=== PATIENT | female | born 1945 | race Caucasian/White ===

== ENCOUNTER 2024-03-16 10:16 | Inpatient (IN) | payer OTHER, SELFPAY ==
[2024-03-16 08:45] VITALS: BP 185/93
[2024-03-16 08:47] VITALS: BP 185/93
[2024-03-16] MEDS: TORADOL 30 MG IV (09:00)
--- NOTE | 2024-03-16 09:17 | ED.GENMED ---
History of Present Illness
General
Chief Complaint: Musculo-Skeletal Complaint
Source: patient
Time Seen by Provider: 03/16/24 08:45
History of Present Illness
History of Present Illness:
78-year-old female with past medical history of hypertension, hyperlipidemia, lupus, chronic neuropathy presenting to the emergency department via ambulance after she was out jogging on a trail when she excellently tripped and fell forward onto her
left hand and hip, unable to straighten her left leg and with severe left proximal thigh and hip pain. Patient has no other concerns. Denies any head injury, LOC, vomiting, use of anticoagulants.
Past History
Past History
ED Past Medical History: HTN and Other
ED Past Surgical History: Orthopedic and Tonsilectomy
Social History
Tobacco: Non-smoker
Alcohol: None
Drug: None
Personal:
Living: with family
Review of Systems
Review of Systems
All Other Systems: ROS reviewed and negative except as documented in HPI and ROS
Phy Exam
Physical Exam
Physical Exam:
GENERAL: Alert , appears very uncomfortable
HEAD: NCAT
EYE: clear conjunctiva
NECK: Supple
ENT: o/p clr, mmm.
ABDOMEN: Soft, without focal tenderness, no r/g, no cvat
NEUROLOGICAL: Alert and oriented
SKIN: Warm and dry, abrasion over left middle finger MCP
MUSCULOSKELETAL: Left Lower Extremity: held at 60 degrees flexion of the knee. Unable to fully extend. Significant pain with palpation of the proximal third of the femur extending in to the pelvis. No outward signs of trauma or breaks in skin. Able
to ROM left ankle/foot. Easily palpable pedal/tibial pulses. Sensation grossly intact and at patients baseline.
PSYCH: Normal and appropriate interaction.
Scores
Heart Failure Risk
Heart Failure Risk Score: Not Applicable
Heart Score for Chest Pain Patients
STEMI patient?: Not applicable
Withdrawal Assessment of Alcohol
Withdrawal Assessment Completed?: Not applicable
Course
Orders/Labs/Results
Orders:
Orders
03/16/24 08:56
Ketorolac [Toradol] 30 mg IV NOW STA
CR Femur - Left Min 2 Vw Urgent
Comment:
Reason For Exam: fall, pain
CR Hip - LT w/wo Pel 2-3 Vw* Urgent
Comment:
Reason For Exam: pain, fall
Include a pelvis x-ray?: Yes
03/16/24 09:03
Basic Metabolic Panel Urgent
Complete Blood Count/With Diff Urgent
PTT Urgent
Prothrombin Time Urgent
03/16/24 09:59
Admit/Transfer Patient As Directed
Co-Sign Provider:
Level of Care: Inpatient admission
Assign to:: Medical/Surgical
Physician / Group: Dr Pappas
Diagnosis: Hip fracture
Reason for Hospitalization: pte p/w fall and had hip fx
Expected length of stay greater than two midnights?: Yes
ELOS- Estimated Length of Stay in days: 2
I certify the patient meets the requirements for IP care: Yes
PRN Pain Medication Management As Directed
May give lesser potent ordered pain med per pt: Yes
preference::
Protocol:: Medication orders for pain may be administered in a
manner that supports deferring to patient preference
when the pt is:
- Requesting an ordered lesser potent pain medication.
Least to most potent pain medications are defined
as: acetaminophen < NSAID < tramadol < opioids
(morphine, oxycodone, hydromorphone).
- Requesting a lesser dose of the same medication IF
ORDERED.
- Requesting a less intrusive route of administration
if both routes are prescribed by the provider (PO <
IV).
03/16/24 10:00
Code Status As Directed
Resuscitation Status: Full Code
03/16/24 10:05
ORTHOPEDIC CONSULT Routine
Consulting Provider: Cem Garduno
Was physician already notified: Yes
Reason for consult: hip fracture
03/16/24 10:06
HydrALAZINE [Apresoline] 10 mg IV Q6HPRN PRN
03/16/24 10:12
EKG [Electrocardiogram (*1)] Stat
Reason for Study: PreOp
Abnormal Lab Results
03/16/24
09:03
WBC 3.8 L 10^3/uL
(4.8-10.8)
RBC 3.82 L 10^6/uL
(4.20-5.40)
Hct 36.5 L %
(37.0-47.0)
MCH 32.2 H pg
(27.0-31.0)
Absolute Lymphs (auto) 0.9 L 10^3/uL
(1.2-3.4)
Monocytes % 11.2 H %
(1.7-9.3)
Carbon Dioxide 31 H mmol/L
(22-30)
BUN 27 H mg/dl
(7-17)
03/16/24 09:03
03/16/24 09:03
Vital Signs
Initial and Last Documented VS:
Initial Vital Signs
Temp Pulse Resp BP Pulse Ox
98.1 F 73 12 185/93 100
03/16/24 08:45 03/16/24 08:45 03/16/24 08:45 03/16/24 08:45 03/16/24 08:45
Last Documented Vital Signs
Temp Pulse Resp BP Pulse Ox
98.1 F 73 12 185/93 100
03/16/24 08:45 03/16/24 08:45 03/16/24 08:45 03/16/24 08:45 03/16/24 08:45
MDM/Problems Addressed
Differential Diagnosis Includes:
left hip/femur fracture, hip dislocation, contusion
MDM/Problems Addressed:
78-year-old female presenting to the emergency department for evaluation after sustaining injury to her left hip while running. Patient is unable to fully extend her left knee secondary to the pain in the hip/pelvis. X-ray of the hip and femur
ordered. Patient initially declined any pain medication but was amenable to some Toradol. She did not receive any medication for pain en route. Labs ordered anticipating fracture and likely need for surgery
*Radiology
Radiology exam reviewed: preliminary read by ED provider
*Pulse Oximetry
Patient hypoxic: no
*Critical Care Note
Total Time (30-74mins, 75-104mins- exclusive of procedures): Not Applicable
Data Reviewed
Review of Other/Old Records Reveals: Labs
Source: patient
Patient Management
Discussion with other providers: Hospitalist and Air Marshal
Escalation/DeEscalation of care consider admission/obs:
On x-ray patient has a left intertrochanteric hip fracture. I notified orthopedic surgery who will plan to take patient to the OR tomorrow. N.p.o. after midnight. Hospitalist team is aware and accepts for continued evaluation and treatment.
ED Attending Note
-
Portions of this chart may have been created with voice recognition software.� Occasional wrong word or��sound alike� substitutions may have occurred due to the inherent limitations of voice recognition software.
Discharge Plan
Departure
Patient Disposition: Admit
Date of Disposition: 03/16/24
Time of Disposition: 09:56
Presentation/result/management discussed w/ accepting MD/DO: Hospitalist
Discharge Problem:
Intertrochanteric fracture of left hip
Interventions
Interventions:
*Risk Screen - Suicide Last Done: 03/16/24 08:45
*General Assessment Last Done: 03/16/24 08:45
*Neglect/Abuse Screening Last Done: 03/16/24 08:45
ED-Musculoskeletal Assessment Last Done: 03/16/24 09:16
[2024-03-16 09:23] LABS: % Basophils 1.6 % (0-2); % Eosinophils 2.9 % (0-6); % Immature Granulocytes 0.5 % (0-0.5); % Lymphocytes 22.7 % (20.5-51.1); % Monocytes 11.2 % (1.7-9.3); % Neutrophils 61.1 % (42.2-75.2); Absolute Basophils 0.1 10^3/uL (0-0.2); Absolute Eosinophils 0.1 10^3/uL (0-0.7); Absolute Lymphocytes 0.9 10^3/uL (1.2-3.4); Absolute Monocytes 0.4 10^3/uL (0.1-0.6); Absolute Neutrophils 2.4 10^3/uL (1.4-6.5); Hematocrit 36.5 % (37.0-47.0); Hemoglobin 12.3 g/dL (12.0-16.0); Mean Corp Hgb Conc. 33.7 g/dL (33.0-37.0); Mean Corpuscular Hgb 32.2 pg (27.0-31.0); Mean Corpuscular Volume 95.5 fL (81.0-99.0); Mean Platelet Volume 8.9 fL (7.4-10.4); Nucleated Red Blood Cells % 0 %; Platelet Count 194 10^3/uL (130-400); Red Blood Cell Count 3.82 10^6/uL (4.20-5.40); Red Cell Dist. Width 13.2 % (11.5-14.5); White Blood Cell Count 3.8 10^3/uL (4.8-10.8)
[2024-03-16 09:28] LABS: Blood Urea Nitrogen 27 mg/dl (7-17); Calcium 9.5 mg/dl (8.4-10.2); Carbon Dioxide 31 mmol/L (22-30); Chloride 104 mmol/L (98-107); Estimated Creatinine Clearance 44 ml/min; Glucose 78 mg/dl (70-99); Potassium 4.6 mmol/L (3.5-5.1); Sodium 135 mmol/L (135-145); eGFR > 60.00
[2024-03-16 09:29] LABS: INR 0.98; PT 12.8 Sec (11.4-14.6)
[2024-03-16 09:30] LABS: APTT 28.8 Sec (23.4-35.0)
--- NOTE | 2024-03-16 10:06 | HPS.HSE ---
Addendum entered and electronically signed by Joni Pappas MD 03/16/24 15:20:
Reviewed twelve-lead EKG and unremarkable. Can proceed to surgery as mentioned.
Original Note:
Family Physician
-
Family Physician: Matthew Mustafa
Chief Complaint
-
fall
History of Present Illness
Patient is 78 years old female history of lupus, hypertension, hyperlipidemia, neuropathy presented to the hospital after a fall. Patient was jogging this morning on a trail and when she finished she basically lost her balance and fell forward onto
her left side. No loss of consciousness. No dizziness or lightheadedness or chest pain or shortness of breath or palpitations. No fevers or chills recently or been ill. Patient is very active overall and denies any chest pain on exertion or
shortness of breath on exertion. In the ER, hemoglobin 12.3, platelet count 194, creatinine 0.8, electrolytes within normal limits. She had an x-ray that shows acute intertrochanteric fracture of the left proximal femur with mild varus angulation
of the distal femoral shaft and mild osteoarthritis with chondrocalcinosis in both hips. She was referred to hospitalist for further evaluation.
Medical History
Past Medical History
Past Medical History: Reports Other (Hypertension, hyperlipidemia, Raynaud's phenomenon, systemic lupus, peripheral neuropathy, osteoarthritis.)
Past Surgical History: Reports None
Social History
Tobacco: Non-smoker
Alcohol: None
Drug: None
Family History
Family History: Not pertinent
Allergies / Home Medications
Allergies reflects when Allergies were last updated in [facility].
Home Medications with original date entered in [facility]
Allergy/Medication List:
Allergies
Allergy/AdvReac Type Severity Reaction Status Date / Time
Penicillins Allergy mouth sores Verified 03/16/24 08:45
Home Medications
aspirin 81 mg tablet,delayed release 81 mg PO Daily 04/26/18
labetalol 100 mg tablet 100 mg PO BID 04/26/18
pregabalin 50 mg capsule 50 mg PO TID 04/26/18
amitriptyline 10 mg tablet 60 mg PO HS 06/19/18
docosahexaenoic acid (dha)-epa 120 mg-180 mg capsule 1 cap PO DAILY 06/19/18
ascorbic acid (vitamin C) 500 mg tablet (Vitamin C) 500 mg PO DAILY 03/16/24
cholecalciferol (vitamin D3) 25 mcg (1,000 unit) tablet (Vitamin D3) 25 mcg PO BID 03/16/24
therapeutic multivitamin 1 tab PO DAILY 03/16/24
vitamin B complex 1 tab PO DAILY 03/16/24
Review of Systems
-
A 12 point ROS was completed and negative except as noted: Yes
Physical Exam
Vital Signs
Vital Signs
Temp Pulse Resp BP Pulse Ox
98.1 F 73 12 185/93 100
03/16/24 08:45 03/16/24 08:45 03/16/24 08:45 03/16/24 08:45 03/16/24 08:45
Physical exam:
General: Acutely ill and apparent Distress due to pain in hip
HEENT: Normocephalic, Atraumatic and Moist Mucous Membranes
Respiratory: Clear to Auscultation; Negative Wheezes, Rales or Rhonchi
Cardiac: Regular Rhythm and S1/S2
GI: Soft, Nontender and Nondistended
Musculoskeletal: Left lower extremity externally rotated and shortened as well as tenderness. No Clubbing, No Cyanosis and No Edema
Neuro: Awake, Alert and Oriented, no gross neuro-deficits
Psych: Anxious
Physical Exam
General: Other
Laboratory Results
-
03/16/24 09:03
03/16/24 09:03
Laboratory Results
PT 12.8 Sec (11.4-14.6) 03/16/24 09:03
INR 0.98 03/16/24 09:03
APTT 28.8 Sec (23.4-35.0) 03/16/24 09:03
Impression/Plan
-
IMPRESSION:
Pte 78 F p/w fall and sustained hip fracture. Given her hip fracture she will need to be admitted to the hospital and manage accordingly.
PLAN:
Left hip fracture:
Orthopedic consult
SCDs for DVT prophylaxis for now
Pain control
N.p.o. after midnight per Ortho recommendations
Preop:
She has good MET score and no contraindications for surgery so she can proceed.
Will obtain twelve-lead EKG preop though.
Hypertension:
Resume home antihypertensive
Add IV hydralazine as needed
Peripheral neuropathy:
Continue amitriptyline and pregabalin
Lupus:
No evidence of flare
DVT prophylaxis:
SCDs
CODE STATUS:
Full code
Time spent 75 minutes
[2024-03-16 12:07] VITALS: BP 135/95
[2024-03-16] MEDS: MORPHINE SULFATE 2 MG IV (12:35)
[2024-03-16] MEDS: TYLENOL 650 MG PO ×3 (12:42→20:05)
[2024-03-16 12:45] VITALS: BP 129/81
--- NOTE | 2024-03-16 12:49 | PTCARENOTE ---
Patient admitted from ER into room 410-02. Patient in severe 10/10 pain. Given 2 mg MSO4 IV. Vital signs stable. Oriented to room, use of call velasco and television and bed controls. Patient verbalizes understanding of teaching. Denies questions at
this time.
[2024-03-16] MEDS: ROXICODONE 5 MG PO (13:03)
--- NOTE | 2024-03-16 13:36 | PTCARENOTE ---
Patient remains with severe pain after MSO4. Roxycodone given as ordered. Patient remains in pain - 9/10 on pain scale. Hospitalist notified. Pain medication changed to dilaudid rather than MSO4. Will continue to monitor.
--- NOTE | 2024-03-16 13:59 | CM ---
Pt admitted s/p fall with hip fx while jogging in a park; anticipate surgical intervention, possible 03/17/2024. Pt is in too much pain to discuss plan for discharge, so rehab facilities have not yet been discussed.
CM spoke with pt's ; he is very supportive.
Latosha and her live in a 2 story home with 1 entry step; no DME in the home, no SNF or VN history.
Plan: CM to follow to assist with probable short term placement for rehab post-op.
PCP: Matthew Mustafa
Pharmacy: [facility] in [place]
[2024-03-16] MEDS: DILAUDID 1 MG IV ×2 (15:52→21:50)
[2024-03-16] MEDS: LYRICA 50 MG PO ×2 (15:52→21:41)
[2024-03-16 15:54] VITALS: BP 116/87
--- NOTE | 2024-03-16 18:38 | CON.ORTHO ---
Consultation - Orthopedics
History
HPI: 78-year-old female presented to the emergency department with complaints of left hip pain and inability to bear weight. She was subsequently diagnosed with a left intertrochanteric femur fracture admitted to the hospitalist service and
orthopedics was consulted for further evaluation and treatment. She reports that she was walking this morning when she lost her balance and fell onto her left side. She localizes pain to the groin and lateral hip. Pain is made worse with any
motion to the left hip. She does report a history of lupus. She notes chronic neuropathy as well as some balance issues. She is community ambulator and does not use assistive devices.
Allergies / Home Medications
Past medical history: Hypertension, hyperlipidemia, lupus, neuropathy
Past surgical history: None reported
Social history: Lives at home with , non-smoker
Family history: Not pertinent
Allergy/AdvReac Type Severity Reaction Status Date / Time
Penicillins Allergy mouth sores Verified 03/16/24 08:45
�Medication �Instructions �Recorded
aspirin 81 mg tablet,delayed 81 mg PO Daily 04/26/18
release
labetalol 100 mg tablet 100 mg PO BID 04/26/18
pregabalin 50 mg capsule 50 mg PO TID 04/26/18
amitriptyline 10 mg tablet 60 mg PO HS 06/19/18
docosahexaenoic acid (dha)-epa 120 1 cap PO DAILY 06/19/18
mg-180 mg capsule
ascorbic acid (vitamin C) 500 mg 500 mg PO DAILY 03/16/24
tablet (Vitamin C)
cholecalciferol (vitamin D3) 25 25 mcg PO BID 03/16/24
mcg (1,000 unit) tablet (Vitamin
D3)
therapeutic multivitamin 1 tab PO DAILY 03/16/24
vitamin B complex 1 tab PO DAILY 03/16/24
Vital Signs / Lab Results
Temp Pulse Resp BP Pulse Ox
97.5 F 69 18 116/87 100
03/16/24 15:54 03/16/24 15:54 03/16/24 15:54 03/16/24 15:54 03/16/24 15:54
03/16/24 09:03
03/16/24 09:03
10 point review systems reviewed and negative unless otherwise stated
General: In some apparent distress at rest, conversant
Musculoskeletal left lower Extremity
Skin intact, no erythematous skin changes
Extremity shortened externally rotated
Tenderness palpation of groin and lateral trochanteric flare
No tenderness palpation over ipsilateral knee without ipsilateral palpable knee effusion
Baseline motor and sensory function distally
No other areas of bony tenderness palpation crepitation long bones or joints of tissue examination
Diagnostic studies
X-rays left hip and femur independently viewed by myself or there is evidence of a displaced left intertrochanteric femur fracture
Assessment / Plan
78-year-old community ambulator status post fall with left intertrochanteric femur fracture. Had a long detailed discussion the patient regarding diagnosis and treatment options. Discussed surgical nonsurgical options. After discussion my
recommendation was to proceed with surgical invention the form of supplemental nail fixation. We discussed risks benefits and alternatives of surgery. We discussed the usual expected perioperative and postoperative course. After discussion verbal
consent was obtained. Will plan to obtain written informed consent prior to surgery.
Nonweightbearing left lower extremity
N.p.o. at midnight
Pain control
Medical management per primary team
Please hold DVT prophylaxis in preparation for OR tomorrow
Plan: 2 OR tomorrow for insertion left cephalomedullary nail fixation left intertrochanteric femur fracture pending or availability and medical clearance.
[2024-03-16] MEDS: ZOFRAN 4 MG IV (18:50)
[2024-03-16] MEDS: TRANDATE 100 MG PO (20:05)
[2024-03-16] MEDS: ELAVIL PO ×2 (21:48)
[2024-03-16 23:25] VITALS: BP 93/59
[2024-03-17] VITALS (8 sets, daily range): BP systolic 98–121; BP diastolic 51–68
[2024-03-17] MEDS: TYLENOL PO ×4 (00:23→17:07)
[2024-03-17] MEDS: DILAUDID 1 MG IV ×4 (02:24→12:42)
[2024-03-17 08:30] LABS: Hematocrit 33.5 % (37.0-47.0); Hemoglobin 11.4 g/dL (12.0-16.0); Mean Corpuscular Hgb 32.7 pg (27.0-31.0); Platelet Count 187 10^3/uL (130-400); Red Blood Cell Count 3.49 10^6/uL (4.20-5.40); Red Cell Dist. Width 13.2 % (11.5-14.5); White Blood Cell Count 7.8 10^3/uL (4.8-10.8)
[2024-03-17] MEDS: TYLENOL 650 MG PO ×2 (08:50→22:37)
[2024-03-17] MEDS: TRANDATE 100 MG PO ×2 (08:51→22:38)
[2024-03-17] MEDS: LYRICA 50 MG PO (08:51)
[2024-03-17 08:59] LABS: Blood Urea Nitrogen 34 mg/dl (7-17); Calcium 8.9 mg/dl (8.4-10.2); Carbon Dioxide 26 mmol/L (22-30); Chloride 102 mmol/L (98-107); Estimated Creatinine Clearance 44 ml/min; Glucose 100 mg/dl (70-99); Potassium 4.8 mmol/L (3.5-5.1); Sodium 135 mmol/L (135-145); eGFR > 60.00
[2024-03-17] MEDS: ZOFRAN 4 MG IV ×2 (09:34→15:52)
[2024-03-17] MEDS: NSS 1000 IV ×2 (10:30→20:53)
--- NOTE | 2024-03-17 10:34 | PTCARENOTE ---
Patient scheduled for hip repair this afternoon. Medicated for pain as needed. NPO since midnight except for morning medications as per order. IVF started - NSS at 85 mls/hour as per order. at bedside. Answered all questions.
--- NOTE | 2024-03-17 10:46 | W.PN.HOSP.TC ---
Addendum entered and electronically signed by Joni Pappas MD 03/17/24 14:59:
Discussed with daughter over the phone today, who happens to be a physician, pathologist and lives in [place].
Original Note:
Today's Communication/Plan
-
Plan for surgery of the hip today.
Assessment / Plan
Assessment / Plan
Physical exam:
General: Acutely ill and apparent Distress due to pain in hip
HEENT: Normocephalic, Atraumatic and Moist Mucous Membranes
Respiratory: Clear to Auscultation; Negative Wheezes, Rales or Rhonchi
Cardiac: Regular Rhythm and S1/S2
GI: Soft, Nontender and Nondistended
Musculoskeletal: Left lower extremity externally rotated and shortened as well as tenderness. No Clubbing, No Cyanosis and No Edema
Neuro: Awake, Alert and Oriented, no gross neuro-deficits
Psych: Anxious
A/P:
Left hip fracture:
Orthopedic consult appreciated
Plan for hip repair today
SCDs for DVT prophylaxis for now. Deferred pharmacological DVT prophylaxis postop to Ortho.
Pain control
N.p.o. for surgery today
Preop:
She has good MET score and no contraindications for surgery so she can proceed.
Twelve-lead EKG preop unremarkable.
Hypertension:
Resumed home antihypertensive
Added IV hydralazine as needed
Peripheral neuropathy:
Continue amitriptyline and pregabalin
Lupus:
No evidence of flare
DVT prophylaxis:
SCDs
CODE STATUS:
Full code
Anticipated Discharge: > 48 hours
Subjective/Interval History
-
Date of Service: March 17, 2024
Patient complains of pain in hip area. No chest pain or shortness of breath
Objective Data
-
Labs:
Laboratory Results
03/17/24
07:40
WBC 7.8
Hgb 11.4 L
Hct 33.5 L
Plt Count 187
Sodium 135
Potassium 4.8
Chloride 102
Carbon Dioxide 26
BUN 34 H
Creatinine 0.8
Glucose 100 H
Calcium 8.9
Vital Signs:
Vital Signs
Temp Pulse Resp BP Pulse Ox
97.8 F 78 18 108/65 93
03/17/24 07:35 03/17/24 08:51 03/17/24 07:35 03/17/24 08:51 03/16/24 23:25
I&O
03/16/24 03/17/24 03/18/24
06:59 06:59 06:59
Intake Total 180 / 180
Output Total 950 / 950
Balance -770 / -770
--- NOTE | 2024-03-17 15:22 | CM ---
Latosha was seen by Orthopedics and plan for surgical intervention tomorrow.
CM will continue to follow to coordinate post-op recovery services.
[2024-03-17] MEDS: LYRICA PO ×2 (17:07→22:32)
--- NOTE | 2024-03-17 20:46 | OR.RPT ---
Operative Report
Operative Report
Anesthesia Type:
Spinal
Operative Indications:
Left intertrochanteric femur fracture
Operative Findings :
Same
Complications:
None
Implants:
11 mm x 130 degree gamma nail, 35 mm x 5 mm distal interlocking screw, 95 mm cephalomedullary lag screw
Procedure and Technique:
Insertion left cephalomedullary nail
INDICATIONS FOR PROCEDURE:
78-year-old active female history of lupus presented to the emergency department status post fall with complaints of left hip pain and inability to bear weight. She was subsequently admitted to the hospitalist service. Orthopedics was consulted.
We discussed both surgical and nonsurgical options. After discussion with my recommendation to proceed with surgical intervention. We discussed risks benefits and alternatives. We discussed the usual expected perioperative postoperative course.
After discussion written informed consent was obtained for insertion of left cephalomedullary nail
OPERATIVE PROCEDURE:
Patient was seen identified in the preoperative holding area. Operative extremity was marked. She was taken to the operating room where spinal anesthesia was administered. She was placed supine on a fracture table. Operative extremities placed
in a well-padded fracture boot. Contralateral extremity was well-padded and secured to the contralateral fracture post. Provisional reduction was performed utilizing axial traction, slight internal rotation and adduction. Appropriate reduction
was confirmed on orthogonal intraoperative fluoroscopy. Operative extremity was then prepped and draped in normal sterile fashion. Timeout was performed. Identified the correct operative extremity and preoperative antibiotics were addressed.
Proximally 5 cm incision was made just proximal to the tip of the greater trochanter. Sharp dissection through the subcutaneous tissue deep fascial layer. Guidewire was placed the tip of the greater trochanter according to technique guide.
Opening reamer was utilized. We did have to utilize flexible reamers given her thick cortices. 11 mm x 130 degree nail was then inserted appropriate depth. Additional incision was made and trocar was placed. Guidewire was then placed into the
femoral head and neck confirmed to be in appropriate position to minimize tip apex distance. Cannulated drill was then utilized and measured. 95 mm cephalomedullary lag screw was then placed appropriate position. Setscrew was deployed. Digital
incision was made and additional trocar was placed through guide. Sharp dissection was carried through skin subcutaneous tissues deep fascial layer. A 35 mm x 5 mm distal interlocking screw was placed. Aiming jig was removed and final orthogonal
images confirmed appropriate position of implant. Wounds were then copiously irrigated normal saline solution. Wounds were closed in a layered fashion utilizing 0 Vicryl, 2-0 Vicryl and vanessa. Aquacel dressings were applied. Anesthesia was
reversed and patient was taken to PACU in stable condition. Postoperative plans include weightbearing to the patient's tolerance operative extremity. Will recommend renally dosed Lovenox x 28 days for DVT prophylaxis. Plan to see patient back in
2 to 3 weeks for repeat evaluation
Disposition:
PACU stable condition
[2024-03-17] MEDS: ELAVIL PO ×2 (22:32)
[2024-03-17] MEDS: NSS IV (23:49)
[2024-03-18] VITALS (7 sets, daily range): BP systolic 94–122; BP diastolic 51–71; PULSE 67–86; O2SAT 96
--- NOTE | 2024-03-18 00:02 | PTCARENOTE ---
Pt arrived in bed from PACU at aprox 2145. at bedside. Pt with no pain at that time to left hip surgical site. Pt with 2 dressings to left hip. No drainage. Vitals stable. Pt instructed to ring for assistance.
[2024-03-18] MEDS: ANCEF 5 IV ×2 (01:13→09:54)
[2024-03-18] MEDS: TYLENOL 650 MG PO ×4 (01:20→21:01)
[2024-03-18] MEDS: DILAUDID 1 MG IV ×2 (03:12→08:09)
[2024-03-18] MEDS: TYLENOL PO ×2 (05:44→12:00)
[2024-03-18] MEDS: NSS 1000 IV ×2 (05:44→15:50)
[2024-03-18 07:26] LABS: Hematocrit 22.3 % (37.0-47.0); Hemoglobin 7.8 g/dL (12.0-16.0); Mean Corpuscular Hgb 32.5 pg (27.0-31.0); Mean Corpuscular Volume 92.9 fL (81.0-99.0); Mean Platelet Volume 9.2 fL (7.4-10.4); Platelet Count 151 10^3/uL (130-400); White Blood Cell Count 6.4 10^3/uL (4.8-10.8)
[2024-03-18] MEDS: LOVENOX 40 MG SC (08:08)
[2024-03-18] MEDS: LYRICA 50 MG PO ×3 (08:09→21:01)
[2024-03-18] MEDS: TRANDATE 100 MG PO ×2 (08:09→21:01)
[2024-03-18] MEDS: COLACE 100 MG PO ×2 (08:09→21:00)
[2024-03-18 08:14] LABS: Blood Urea Nitrogen 30 mg/dl (7-17); Calcium 8.1 mg/dl (8.4-10.2); Carbon Dioxide 25 mmol/L (22-30); Chloride 108 mmol/L (98-107); Estimated Creatinine Clearance 44 ml/min; Glucose 99 mg/dl (70-99); Potassium 4.4 mmol/L (3.5-5.1); Sodium 134 mmol/L (135-145); eGFR > 60.00
--- NOTE | 2024-03-18 08:36 | W.PN.HOSP.TC ---
Addendum entered and electronically signed by Joni Pappas MD 03/18/24 13:51:
Acute traumatic left hip fracture.
Acute postop anemia.
Original Note:
Today's Communication/Plan
-
Repeat hemoglobin. PT OT eval.
Assessment / Plan
Assessment / Plan
Physical exam:
General: Apparent Distress due to pain in hip
HEENT: Normocephalic, Atraumatic and Moist Mucous Membranes
Respiratory: Clear to Auscultation; Negative Wheezes, Rales or Rhonchi
Cardiac: Regular Rhythm and S1/S2
GI: Soft, Nontender and Nondistended
Musculoskeletal: Left lower extremity postop site tender but no erythema and no hematoma. No Clubbing, No Cyanosis and No Edema
Neuro: Awake, Alert and Oriented, no gross neuro-deficits
Psych: Anxious
A/P:
Left hip fracture:
Orthopedic consult appreciated
Status post left cephalomedullary nail on 03/17
Ortho started her on Lovenox
On IV fluids per Ortho
Pain control
PT OT eval
Acute postop anemia:
Hemoglobin 11.4---> 7.8 today
Repeat hemoglobin this morning
Discussed about possible blood transfusion with patient and at bedside and discussed about risks benefits. No consent yet but willing to consider if required.
Continue to monitor hemoglobin closely
Hyponatremia:
Mild at 134 today
Continue to monitor as needed
Preop:
She has good MET score and no contraindications for surgery so she can proceed.
Twelve-lead EKG preop unremarkable.
Hypertension:
Resumed home antihypertensive
Added IV hydralazine as needed
Peripheral neuropathy:
Continue amitriptyline and pregabalin
Lupus:
No evidence of flare
DVT prophylaxis:
SCDs and Lovenox
CODE STATUS:
Full code
Anticipated Discharge: 24 - 48 hours
Subjective/Interval History
-
Date of Service: March 18, 2024
Patient complains of pain hip area. No bleeding from surgical site. No chest pain or shortness of breath. Mild sedation reported by RN after narcotics but alert enough to me.
Objective Data
-
Labs:
Laboratory Results
03/18/24
06:48
WBC 6.4
Hgb 7.8 L D
Hct 22.3 L
Plt Count 151
Sodium 134 L
Potassium 4.4
Chloride 108 H
Carbon Dioxide 25
BUN 30 H
Creatinine 0.8
Glucose 99
Calcium 8.1 L
Vital Signs:
Vital Signs
Temp Pulse Resp BP Pulse Ox
98.2 F 86 14 122/67 94
03/18/24 07:35 03/18/24 08:09 03/18/24 07:35 03/18/24 08:09 03/18/24 07:35
I&O
03/17/24 03/18/24 03/19/24
06:59 06:59 06:59
Intake Total 180 / 180 1390 / 1390
Output Total 950 / 950 550 / 550
Balance -770 / -770 840 / 840
--- NOTE | 2024-03-18 10:24 | CM ---
Reviewed the chart notes. PT/OT evaluations pending. CM continues to be available to patient/family and is monitoring medical plan for needs at discharge.
Plan: Discharge plans will depend on PT/OT evaluations. Possible need for SNF/rehab prior to transitioning back to home.
[2024-03-18] MEDS: ZOFRAN 4 MG IV (10:41)
[2024-03-18 12:21] LABS: Hematocrit 23.2 % (37.0-47.0)
--- NOTE | 2024-03-18 12:42 | PN.CDI ---
CDI
- -
CDI:
Physician Documentation Request
Admit Date: 03/16/24 10:16
Dear Doctor Mian,
Please review the following and provide your response in the progress notes.
Clinical Indicators:
- 03/18 PN 'Acute postop anemia...Discussed about possible blood transfusion'
- 03/17 Op Report indicates insertion of left cephalomedullary nail
- 03/17-03/18 3L IVF
Laboratory Tests
03/16/24 03/17/24 03/18/24
09:03 07:40 06:48
Hgb 12.3 11.4 L 7.8 L D
03/18/24
11:52
Hgb 8.0 L
Please clarify the appropriate type of anemia that supports the above lab abnormalities and additional evaluation, monitoring and/or treatment rendered:
Anemia, due to acute blood loss and hemodilution
Anemia due to hemodilution only
Other
Use of terms such as suspected, likely, concern for, or probable (associated with a specific diagnosis that is being evaluated, monitored, or treated as if it exists) are acceptable and can be coded in the inpatient setting, when documented at the
time of discharge.
Thank you,
Christine Patrick RN
CDI Specialist
Please use your independent medical judgment in providing your response.
--- NOTE | 2024-03-18 12:46 | PN.CDI ---
CDI
- -
CDI:
Physician Documentation Request
Admit Date: 03/16/24 10:16
Dear Doctor Pappas,
Please review the following and provide your response in the progress notes.
Clinical Indicators:
- 03/18 PN 'Left hip fracture'
- per ER Physician patient was jogging on a trail and tripped
- per 10/26/21 Bone Density Survey 'left proximal femur...decrease in the bone mineral density which is statistically significant...osteopenia'
Please provide further specificity regarding the diagnosis of the left hip fracture:
Traumatic
Pathologic due to osteoporosis
Due to a combination of trauma and a pathological process but the trauma alone would not likely have been sufficient to cause the fracture
Other
Use of terms such as suspected, likely, concern for, or probable (associated with a specific diagnosis that is being evaluated, monitored, or treated as if it exists) are acceptable and can be coded in the inpatient setting, when documented at the
time of discharge.
Thank you,
Christine Patrick RN
CDI Specialist
Please use your independent medical judgment in providing your response.
--- NOTE | 2024-03-18 12:57 | W.PN.ORTHO ---
Today's Communication / Plan
-
POD 1 s/p L short CMN for IT femur fx
WBAT LLE
Pain control
DVT ppx: renally dosed lovenox X 28 days daily
PT/OT
Pain control
Medical management per primary team
Follow up outpatient in 2-3 weeks outpatient with myself
Subjective
.
.:
Patient resting comfortably in bed. Continues to complain of pain in left thigh/leg.
Vital Signs and Labs
.
Vital Signs and Labs:
Lab Results
03/18/24 11:52
03/18/24 06:48
Temp Pulse Resp BP Pulse Ox
98.2 F 82 16 106/67 96
03/18/24 11:25 03/18/24 11:25 03/18/24 11:25 03/18/24 11:25 03/18/24 11:25
PT 12.8 Sec (11.4-14.6) 03/16/24 09:03
INR 0.98 03/16/24 09:03
Physical Exam
-
MSK LLE
Dressings with minimal bloody drainage
Moderate swelling thigh
no gross or motor sensory deficits distally
[2024-03-18] MEDS: ELAVIL 10 MG PO ×2 (21:01→21:03)
[2024-03-18] MEDS: ELAVIL 50 MG PO (21:04)
[2024-03-19] MEDS: TYLENOL PO (00:19)
[2024-03-19] MEDS: NSS 1000 IV (02:27)
[2024-03-19] MEDS: TYLENOL 650 MG PO ×6 (03:52→23:20)
--- NOTE | 2024-03-19 07:26 | W.PN.HOSP.TC ---
Addendum entered and electronically signed by Joni Pappas MD 03/19/24 12:58:
Underweight
Original Note:
Today's Communication/Plan
-
Pain control. PT OT. Monitor hemoglobin
Assessment / Plan
Assessment / Plan
Physical exam:
General: Apparent Distress due to pain in hip
HEENT: Normocephalic, Atraumatic and Moist Mucous Membranes
Respiratory: Clear to Auscultation; Negative Wheezes, Rales or Rhonchi
Cardiac: Regular Rhythm and S1/S2
GI: Soft, Nontender and Nondistended
Musculoskeletal: Left lower extremity postop site tender but no erythema and no hematoma. No Clubbing, No Cyanosis and No Edema
Neuro: Awake, Alert and Oriented, no gross neuro-deficits
Psych: Anxious
A/P:
Left hip fracture:
Orthopedic consult appreciated
Status post left cephalomedullary nail on 03/17
Ortho recommended continue on Lovenox
Off IV fluids
Pain control
Bowel regimen
PT OT eval
Discussed with at bedside
Offered psychiatry consult for further evaluation adjustment disorder but patient and kindly declined.
Acute blood loss postop anemia:
Hemoglobin 11.4---> 7.8-->8-->7.4
Continue to monitor hemoglobin closely
Hyponatremia:
Mild at 134-->136
Preop:
She has good MET score and no contraindications for surgery so she can proceed.
Twelve-lead EKG preop unremarkable.
Hypertension:
Resumed home antihypertensive
Added IV hydralazine as needed
Peripheral neuropathy:
Continue amitriptyline and pregabalin
Lupus:
No evidence of flare
DVT prophylaxis:
SCDs and Lovenox
CODE STATUS:
Full code
Anticipated Discharge: 24 - 48 hours
Subjective/Interval History
-
Date of Service: March 19, 2024
Patient still complains of pain. Mild depressed mood. No bleeding
Objective Data
-
Labs:
Laboratory Results
03/19/24
06:00
WBC Pending
Hgb Pending
Hct Pending
Plt Count Pending
Sodium Pending
Potassium Pending
Chloride Pending
Carbon Dioxide Pending
BUN Pending
Creatinine Pending
Glucose Pending
Calcium Pending
Vital Signs:
Vital Signs
Temp Pulse Resp BP Pulse Ox
98.4 F 77 16 94/51 96
03/18/24 23:11 03/18/24 23:11 03/18/24 23:11 03/18/24 23:11 03/18/24 23:11
I&O
03/18/24 03/19/24 03/20/24
06:59 06:59 06:59
Intake Total 1390 / 1390 2880 / 2880
Output Total 550 / 550
Balance 840 / 840 2880 / 2880
--- NOTE | 2024-03-19 07:51 | PN.CDI ---
CDI
- -
CDI:
Physician Documentation Request
Admit Date: 03/16/24 10:16
Dear Doctor Mian,
Please review the following and provide your response in the progress notes.
Clinical Indicators:
Height: 5'3
Weight: 104lbs
BMI: 18.6
- Patient admit for fractured hip due to fall
If possible, please provide an associated diagnosis related to the abnormal BMI, such as:
Underweight
Cachectic
BMI is not significant
Other
Use of terms such as suspected, likely, concern for, or probable (associated with a specific diagnosis that is being evaluated, monitored, or treated as if it exists) are acceptable and can be coded in the inpatient setting, when documented at the
time of discharge.
Thank you,
Christine Patrick RN
CDI Specialist
Please use your independent medical judgment in providing your response.
[2024-03-19 08:31] LABS: Hematocrit 21.1 % (37.0-47.0); Hemoglobin 7.4 g/dL (12.0-16.0); Mean Corp Hgb Conc. 35.1 g/dL (33.0-37.0); Mean Corpuscular Volume 94.2 fL (81.0-99.0); Red Blood Cell Count 2.24 10^6/uL (4.20-5.40); White Blood Cell Count 5.9 10^3/uL (4.8-10.8)
[2024-03-19 08:32] VITALS: BP 110/65
[2024-03-19 08:35] LABS: Blood Urea Nitrogen 16 mg/dl (7-17); Calcium 8.1 mg/dl (8.4-10.2); Carbon Dioxide 24 mmol/L (22-30); Chloride 109 mmol/L (98-107); Estimated Creatinine Clearance 58 ml/min; Glucose 93 mg/dl (70-99); Potassium 3.6 mmol/L (3.5-5.1); Sodium 136 mmol/L (135-145); eGFR > 60.00
--- NOTE | 2024-03-19 08:44 | CM ---
Addendum entered by Molly Smyth RN 03/19/24 15:19:
Auth started in [employer]ail[employer]; Pended # [id number]
Addendum entered by Molly Smyth RN 03/19/24 11:49:
[facility] offered a bed. Patient selected [facility]. Per [facility] director of market analysis at [facility], patient does have Out of Network [employer] Benefits Co-Pays as follows for days 1-20 $0/Day and for days 21-100 $100/Day. Patient and spouse in agreement
with costs. Precert will be required.
DR. Philip ; [facility] or Tax ID [id number].
Original Note:
Reviewed the chart notes. Referrals sent in [facility] for short term rehab. Precert will be required. CM continues to be available to patient/family and is monitoring medical plan for needs at discharge.
Plan: Discharge to SNF/rehab once bed found and precert obtained.
[2024-03-19] MEDS: LYRICA 50 MG PO ×3 (09:02→21:28)
[2024-03-19] MEDS: COLACE 100 MG PO ×2 (09:02→20:31)
[2024-03-19] MEDS: LOVENOX 40 MG SC (09:02)
[2024-03-19] MEDS: TRANDATE 100 MG PO ×2 (09:02→20:32)
[2024-03-19 12:15] VITALS: BP 110/65; PULSE 84
[2024-03-19 12:39] VITALS: BP 110/65; BP 87/40; PULSE 79
[2024-03-19 15:31] VITALS: BP 104/50
[2024-03-19] MEDS: ELAVIL 50 MG PO (21:27)
[2024-03-19 23:40] VITALS: BP 111/58
[2024-03-20] VITALS (8 sets, daily range): BP systolic 95–152; BP diastolic 53–78
[2024-03-20] MEDS: TYLENOL 650 MG PO ×6 (04:51→23:05)
[2024-03-20 07:34] LABS: Hematocrit 17.9 % (37.0-47.0); Hemoglobin 6.2 g/dL (12.0-16.0)
--- NOTE | 2024-03-20 08:17 | W.PN.HOSP.TC ---
Today's Communication/Plan
-
Blood transfusion today.
Assessment / Plan
Assessment / Plan
Physical exam:
General: Apparent Distress due to pain in hip
HEENT: Normocephalic, Atraumatic and Moist Mucous Membranes
Respiratory: Clear to Auscultation; Negative Wheezes, Rales or Rhonchi
Cardiac: Regular Rhythm and S1/S2
GI: Soft, Nontender and Nondistended
Musculoskeletal: Left lower extremity postop site tender but no erythema and no hematoma. No Clubbing, No Cyanosis and No Edema
Neuro: Awake, Alert and Oriented, no gross neuro-deficits
Psych: Anxious
A/P:
Left hip fracture, traumatic and acute:
Orthopedic consult appreciated
Status post left cephalomedullary nail on 03/17
Ortho recommended continue on Lovenox
Off IV fluids-no need for since she is getting blood transfusion
Pain control
Bowel regimen
PT OT eval
Offered psychiatry consult for further evaluation adjustment disorder but patient and kindly declined prior.
Discussed with at bedside as well as daughter who is a physician (pathologist).
Acute blood loss postop anemia:
Hemoglobin 11.4---> 6.2
Blood transfusion today, 2 unit
Continue to monitor hemoglobin closely
Hyponatremia:
Mild at 134-->136
Preop:
She has good MET score and no contraindications for surgery so she can proceed.
Twelve-lead EKG preop unremarkable.
Hypertension:
Resumed home antihypertensive
Added IV hydralazine as needed
Peripheral neuropathy:
Continue amitriptyline and pregabalin
Lupus:
No evidence of flare
DVT prophylaxis:
SCDs and Lovenox
CODE STATUS:
Full code
Anticipated Discharge: 24 - 48 hours
Subjective/Interval History
-
Date of Service: March 20, 2024
Patient with pain postop, no melena or hematemesis. No active bleeding. No chest pain or shortness of breath
Objective Data
-
Labs:
Laboratory Results
03/20/24
06:31
Hgb 6.2 L*
Hct 17.9 L*
Vital Signs:
Vital Signs
Temp Pulse Resp BP Pulse Ox
98.2 F 76 12 124/69 99
03/20/24 07:00 03/20/24 07:00 03/20/24 07:00 03/20/24 07:00 03/20/24 07:00
I&O
03/19/24 03/20/24 03/21/24
06:59 06:59 06:59
Intake Total 2880 / 2880 1860 / 1860
Balance 2880 / 2880 1860 / 1860
[2024-03-20] MEDS: LYRICA 50 MG PO ×3 (08:19→21:12)
[2024-03-20] MEDS: TRANDATE 100 MG PO ×2 (08:20→20:20)
[2024-03-20] MEDS: LOVENOX SC ×2 (08:20→09:04)
[2024-03-20] MEDS: COLACE 100 MG PO ×2 (08:20→20:20)
--- NOTE | 2024-03-20 09:12 | CM ---
Addendum entered by Virginia Pringle 03/20/24 16:34:
Met with patient and family at the bedside to discuss discharge plan; explained that insurance authorization was approved and bed is available if discharged tomorrow
To facilitate transport coordination, Transport suppression crew leader Form and Physician Certification Statement completed and given to unit control worker to place on the chart
IMM benefit explained; form signed @ 1620
Plan: Discharge to [facility] tomorrow, 03/21/24,
[facility]; 4th Floor
Report # [phone]

Addendum entered by Virginia Pringle 03/20/24 12:32:
If patient is stable for Discharge tomorrow, Madiha @ [facility] instructed to First call Library Serials Assistant # [phone] and ask for the Nursing Admiral[employer] Lawyer
[facility]; 4th Floor
Report # [phone]

Addendum entered by Virginia Pringle 03/20/24 12:22:
Plan: Discharge to [facility] tomorrow if medically stable
Auth approved; notified Madiha @ [facility]; Bed available
AUTH Certification # [id number]
Start Date 03-20-24
End Date 04-01-24
Original Note:
Plan: Discharge to [facility] when stable pending bed availability; AUTH approved
Per Attending, patient will probably be discharged tomorrow. Contacted [facility] for bed availability
AUTH Certification # [id number]
Start Date 03-20-24
End Date 04-01-24
[2024-03-20] MEDS: FLEXERIL 5 MG PO (20:27)
[2024-03-20] MEDS: ELAVIL 10 MG PO (21:12)
[2024-03-20] MEDS: ELAVIL 50 MG PO (21:12)
[2024-03-21] MEDS: TYLENOL PO (04:48)
[2024-03-21 07:40] VITALS: BP 165/88
[2024-03-21 08:36] LABS: % Basophils 0.8 % (0-2); % Immature Granulocytes 0.8 % (0-0.5); % Lymphocytes 11.1 % (20.5-51.1); % Monocytes 8.1 % (1.7-9.3); % Neutrophils 74.2 % (42.2-75.2); Absolute Eosinophils 0.3 10^3/uL (0-0.7); Absolute Lymphocytes 0.6 10^3/uL (1.2-3.4); Absolute Monocytes 0.4 10^3/uL (0.1-0.6); Absolute Neutrophils 3.9 10^3/uL (1.4-6.5); Hematocrit 27.5 % (37.0-47.0); Hemoglobin 9.9 g/dL (12.0-16.0); Mean Corp Hgb Conc. 36.2 g/dL (33.0-37.0); Mean Corpuscular Hgb 31.8 pg (27.0-31.0); Mean Corpuscular Volume 87.7 fL (81.0-99.0); Mean Platelet Volume 9.6 fL (7.4-10.4); Nucleated Red Blood Cells % 0 %; Platelet Count 130 10^3/uL (130-400); Red Blood Cell Count 3.18 10^6/uL (4.20-5.40); Red Cell Dist. Width 15.5 % (11.5-14.5); White Blood Cell Count 5.2 10^3/uL (4.8-10.8)
[2024-03-21] MEDS: TYLENOL 650 MG PO ×2 (09:18→14:17)
[2024-03-21] MEDS: TRANDATE 100 MG PO (09:19)
[2024-03-21] MEDS: LYRICA 50 MG PO ×2 (09:19→15:56)
[2024-03-21] MEDS: COLACE 100 MG PO (09:20)
[2024-03-21] MEDS: LOVENOX 40 MG SC (09:20)
--- NOTE | 2024-03-21 09:48 | W.PN.HOSP.TC ---
Today's Communication/Plan
-
Discharge planning today.
Assessment / Plan
Assessment / Plan
Physical exam:
General: Apparent Distress due to pain in hip
HEENT: Normocephalic, Atraumatic and Moist Mucous Membranes
Respiratory: Clear to Auscultation; Negative Wheezes, Rales or Rhonchi
Cardiac: Regular Rhythm and S1/S2
GI: Soft, Nontender and Nondistended
Musculoskeletal: Left lower extremity postop site tender but no erythema and no hematoma. No Clubbing, No Cyanosis and No Edema
Neuro: Awake, Alert and Oriented, no gross neuro-deficits
Psych: Anxious
A/P:
Left hip fracture, traumatic and acute:
Orthopedic consult appreciated
Status post left cephalomedullary nail on 03/17
Ortho recommended continue on Lovenox for 28 days so we will continue with 24 more days to complete course.
Off IV fluids-no need for since she is getting blood transfusion
Pain control
Bowel regimen
PT OT eval
Offered psychiatry consult for further evaluation adjustment disorder but patient and kindly declined prior.
Discussed with at bedside as well as daughter who is a physician (pathologist) yesterday.
Discussed with at bedside again today.
Discussed with attending RN today.
Medically stable for discharge.
business unit manager for discharge disposition
Acute blood loss postop anemia:
Hemoglobin 11.4---> 6.2-->9.9
LFTs normal and no signs of hemolysis
Blood transfusion yesterday, 2 unit
Continue to monitor hemoglobin as outpatient
Hyponatremia:
Mild at 134-->138
Preop:
She has good MET score and no contraindications for surgery so she can proceed.
Twelve-lead EKG preop unremarkable.
Hypertension:
Resumed home antihypertensive
Added IV hydralazine as needed
Peripheral neuropathy:
Continue amitriptyline and pregabalin
Lupus:
No evidence of flare
DVT prophylaxis:
SCDs and Lovenox
CODE STATUS:
Full code
Anticipated Discharge: Today
Subjective/Interval History
-
Date of Service: March 21, 2024
Patient denies new complaints.
Objective Data
-
Labs:
Laboratory Results
03/21/24
08:06
WBC 5.2
Hgb 9.9 L D
Hct 27.5 L
Plt Count 130
Sodium Pending
Potassium Pending
Chloride Pending
Carbon Dioxide Pending
BUN Pending
Creatinine Pending
Glucose Pending
Calcium Pending
Total Bilirubin Pending
AST Pending
ALT Pending
Alkaline Phosphatase Pending
Vital Signs:
Vital Signs
Temp Pulse Resp BP Pulse Ox
98.1 F 66 18 165/88 100
03/21/24 07:40 03/21/24 07:40 03/21/24 07:40 03/21/24 07:40 03/21/24 07:40
I&O
03/20/24 03/21/24 03/22/24
06:59 06:59 06:59
Intake Total 1859 240 / 240
Balance 1859 240 / 240
[2024-03-21 09:52] LABS: ALT (SGPT) 38 U/L (0-35); AST (SGOT) 83 U/L (14-36); Albumin 3.3 g/dl (3.5-5.0); Alkaline Phosphatase 83 U/L (38-126); Blood Urea Nitrogen 13 mg/dl (7-17); Calcium 8.7 mg/dl (8.4-10.2); Carbon Dioxide 23 mmol/L (22-30); Chloride 109 mmol/L (98-107); Estimated Creatinine Clearance 58 ml/min; Glucose 83 mg/dl (70-99); Potassium 3.8 mmol/L (3.5-5.1); Sodium 138 mmol/L (135-145); Total Bilirubin 1.3 mg/dl (0.2-1.3); Total Protein 5.7 g/dl (6.3-8.2); eGFR > 60.00
--- NOTE | 2024-03-21 12:08 | W.DCSUMMARY ---
Discharge Summary
Discharge Data
Date of Admission: 03/16/24
Date of Discharge: 03/21/24
-
Pending Results: No
Hospital Course
Patient 78 years old female history of hypertension, hyperlipidemia, lupus, peripheral neuropathy presented the after a fall and found to have a left intertrochanteric femoral fracture. Orthopedic consulted. She was taken to the OR by orthopedic
and had insertion of left cephalomedullary nail on 03/17. Patient also has some postop anemia and she received blood transfusion and hemoglobin stable posttransfusion at 9.9. Patient participating with physical therapy and Occupational Therapy and
recommended rehab. Patient is going to be discharged to rehab in relatively stable condition today.
Discharge duration: 33-minute
Discharge Plan
-
Patient Disposition: Jail/SNF
Discharge Diagnosis/Procedures: Left Hip fracture status post surgical repair. Acute blood loss post op anemia.
Diet: Low Cholesterol
Activity: Other activity
Additional Activity: As instructed by ortho
Blood Work: Please PCP to order CBC, BMP within 1 week
Referrals:
Cem Garduno MD [Active] - in one to two weeks
Matthew Mustafa MD [Family Provider] - in less than 1 week
Prescriptions:
New
enoxaparin 40 mg/0.4 mL Syringe
40 mg SC DAILY 24 Days Qty: 9.6 0RF
cyclobenzaprine 10 mg Tablet
5 mg PO Q8HPRN PRN (Reason: spasm in hip area) 7 Days Qty: 4 0RF
docusate sodium 100 mg Capsule
100 mg PO BID 14 Days Qty: 28 0RF
oxycodone 5 mg Tablet
5 mg PO Q4HPRN PRN (Reason: moderate pain) Qty: 4 0RF
Continued
aspirin 81 MG tablet,delayed release (DR/EC)
81 mg PO Daily
labetalol 100 MG tablet
100 mg PO BID
pregabalin 50 MG capsule
50 mg PO TID
amitriptyline 10 MG tablet
60 mg PO HS
Patient Comments:
docosahexaenoic acid-epa 1 CAP capsule
1 cap PO DAILY
therapeutic multivitamin Tablet
1 tab PO DAILY
ascorbic acid (vitamin C) [Vitamin C] 500 mg Tablet
500 mg PO DAILY
vitamin B complex Tablet
1 tab PO DAILY
cholecalciferol (vitamin D3) [Vitamin D3] 25 mcg (1,000 unit) Tablet
25 mcg PO BID
Discharge Orders:
Discharge Patient (As Directed); Ordered 03/21/24
Ordered By: Joni Pappas
Discharge Date and Time
Discharge Date/Time: 03/21/24 16:20
Print Language: BENGALI
--- NOTE | 2024-03-21 12:54 | CM ---
Addendum entered by Jessa Stapleton 03/21/24 14:05:
CM met with pt and spouse at bedside who are agreeable to SNF at [facility] with a 4pm roller picker.
Original Note:
CM spoke to Nursing Guitar Player Higinio at [facility], they can accept pt today after 3pm.
[2024-03-21 15:20] VITALS: BP 120/69
== END 2024-03-21 16:20 | DRG 481 ==
LOC: 2 SOUTH 10:16
PROVIDERS: Physician Assistant Medical; ADMITTING PHYSICIAN Hospitalist; CONSULT PHYSICIAN Orthopaedic Surgery; EMERGENCY PHYSICIAN Student in an Organized Health Care Education/Training Program; FAMILY PHYSICIAN Internal Medicine
PROC: 0QS736Z Reposition Left Upper Femur with Intramedullary Internal Fixation Device, Percutaneous Approach (ICD-10-PCS; 2024-03-17)
PROC: 30233N1 Transfusion of Nonautologous Red Blood Cells into Peripheral Vein, Percutaneous Approach (ICD-10-PCS; 2024-03-20)
DX: S72.142A Displaced intertrochanteric fracture of left femur, initial encounter for closed fracture (principal); D62 Acute posthemorrhagic anemia; E87.1 Hypo-osmolality and hyponatremia; Z68.1 Body mass index [BMI] 19.9 or less, adult; I10 Essential (primary) hypertension; E78.5 Hyperlipidemia, unspecified; M32.9 Systemic lupus erythematosus, unspecified; G62.9 Polyneuropathy, unspecified; M19.90 Unspecified osteoarthritis, unspecified site; R63.6 Underweight; Z88.0 Allergy status to penicillin; Z79.82 Long term (current) use of aspirin; Z79.899 Other long term (current) drug therapy; W01.0XXA Fall on same level from slipping, tripping and stumbling without subsequent striking against object, initial encounter; Y93.01 Activity, walking, marching and hiking
CPT/HCPCS: 73502; 73552; 76000; 80048; 80053; 85014; 85018; 85025; 85027; 85610; 85730; 86850; 86900; 86901; 86920; 93005; 96374; 97110; 97163; 97167; 97530; 97535; 99285; C1713; C1769; P9016

== ENCOUNTER 2024-03-25 10:12 | Inpatient (IN) | payer OTHER, SELFPAY ==
[2024-03-22 23:02] VITALS: BP 187/101; BMI 19.6
[2024-03-22 23:33] LABS: Hematocrit 31.7 % (37.0-47.0); Hemoglobin 11.4 g/dL (12.0-16.0); Mean Corpuscular Hgb 31.4 pg (27.0-31.0); Mean Corpuscular Volume 87.3 fL (81.0-99.0); Mean Platelet Volume 8.6 fL (7.4-10.4); Platelet Count 208 10^3/uL (130-400); Red Blood Cell Count 3.63 10^6/uL (4.20-5.40); Red Cell Dist. Width 15.3 % (11.5-14.5)
[2024-03-22 23:47] LABS: ALT (SGPT) 112 U/L (0-35); AST (SGOT) 220 U/L (14-36); Albumin 3.9 g/dl (3.5-5.0); Alkaline Phosphatase 107 U/L (38-126); Blood Urea Nitrogen 15 mg/dl (7-17); Calcium 9.6 mg/dl (8.4-10.2); Carbon Dioxide 28 mmol/L (22-30); Chloride 101 mmol/L (98-107); Estimated Creatinine Clearance 61 ml/min; Glucose 110 mg/dl (70-99); Potassium 4.2 mmol/L (3.5-5.1); Sodium 136 mmol/L (135-145); Total Protein 6.6 g/dl (6.3-8.2); eGFR > 60.00
[2024-03-23] VITALS (10 sets, daily range): BP systolic 101–170; BP diastolic 59–104; BMI 17.8
--- NOTE | 2024-03-23 00:46 | ED.GENMED ---
History of Present Illness
<Florinda Amin PA-C - Last Filed: 03/23/24 21:33>
General
Chief Complaint: Abdominal Symptoms
Source: patient
Time Seen by Provider: 03/23/24 00:30
History of Present Illness
History of Present Illness:
78yoF with a history of hypertension, hyperlipidemia, and lupus presenting for evaluation of nausea and abdominal pain. Patient was recently hospitalized for a left hip fracture and underwent IM nail on 03/17/2024. She was discharged to a
short-term rehab facility 2 days ago. Around midnight 2 nights ago, she developed generalized abdominal cramping as well as nausea. She also reports a headache. She has been urinating frequently since her surgery. She was given milk of magnesia
and Zofran earlier today at her nursing facility. She had an episode of dry heaving this evening and she was sent to the ED for evaluation. Patient denies any chest pain, shortness of breath, diarrhea, fevers. No previous abdominal surgeries. Of
note, patient was tested for COVID earlier today and test was negative.
Past History
<Florinda Amin PA-C - Last Filed: 03/23/24 21:33>
Past History
ED Past Medical History: HTN and Other
ED Past Surgical History: Orthopedic and Tonsilectomy
Social History
Tobacco: Non-smoker
Alcohol: None
Drug: None
Personal:
Living: with family
Phy Exam
<Florinda Amin PA-C - Last Filed: 03/23/24 21:33>
General Physical Exam
General Presentation: well appearing
General age: appears stated age
General Skin: warm and dry
General Habitus: normal
General Mental: alert
Cardiovascular Exam
Cardiovascular Exam: regular rate/rhythm and no edema
Pulmonary Exam
Pulmonary Exam: lungs clear, no respiratory distress, no crackles and no wheezing
Gastrointestinal Exam
Gastrointestinal Exam: soft, non distended and tender (Tenderness present to epigastrium. No guarding or rebound tenderness.)
[place] Coma Scale
Eye Opening: Spontaneous
Verbal Response: Oriented
Motor Response: Obeys Commands
GCS Total Score: 15
Skin Exam
Skin Exam: normal color and warm/dry
Psychiatric Exam
Psychiatric Exam: normal mood/affect
Course
<Florinda Amin PA-C - Last Filed: 03/23/24 21:33>
Orders/Labs/Results
Orders:
Orders
03/22/24 23:22
Comprehensive Metabolic Panel Urgent
Lipase Urgent
03/22/24 23:23
Complete Blood Count/No Diff Urgent
03/23/24 00:43
CT Abd/pel W Iv And Oral Contr Urgent
Comment:
Reason For Exam: Nausea, abdominal cramping
0.9% Sodium Chloride 500 ml [Nss] 500 ml IV BOLUS
Iohexol [Omnipaque] See Protocol PO NOW STA
Ondansetron Injectable [Zofran] 4 mg IV NOW STA
03/23/24 00:48
Electrocardiogram (*1) Urgent
Reason for Study: Abdominal Pain
EKG- Treatment ONCE
03/23/24 01:10
Add On- LAB Urgent
Tests Added?: Lipase
03/23/24 01:13
Troponin I Urgent
03/23/24 04:35
Code Status As Directed
Resuscitation Status: Full Code
Bisacodyl [Dulcolax] 10 mg RECTAL [id number] PRN
Docusate W/Senna [Senokot-S] 1 tablet PO BIDPRN PRN
Polyethylene Glycol Powder [Miralax] 17 grams PO DAILYPRN PRN
Activity As Directed
Activity Level: With Assistance
Vital Signs As Directed
Frequency: Per unit guidelines
03/23/24 04:38
GASTROINTESTINAL CONSULT Routine
Consulting Provider: Stu Plunkett
Was physician already notified: No
Reason for consult: new transaminitis
Ondansetron Injectable [Zofran] 4 mg IV Q6HPRN PRN
Intake/ Output As Directed
Frequency: Per unit guidelines
DX Deep Vein Thrombosis Video Routine
03/23/24 04:41
Consult Notification Routine
Specialty to Notify: Gastroenterology
Date consulting provider notified: 03/23/24
Time consulting provider notified: 07:05
Notified:: Provider
Comment: tt
03/23/24 04:42
Cyclobenzaprine HCl [Flexeril] 5 mg PO Q8HPRN PRN
Oxycodone [Roxicodone] 5 mg PO Q4HPRN PRN
03/23/24 04:45
0.9% Sodium Chloride 1000 ml [Nss] 1,000 ml IV 100 mls/hr
03/23/24 04:50
Admit Patient As Directed
Co-Sign Provider:
Level of Care: Observation services
Assign to:: Medical/Surgical
Physician / Group: dr orellana
Diagnosis: new transaminitis, abd pain,nausea
HYDROmorphone [Dilaudid] 0.5 mg IV Q3HPRN PRN
PRN Pain Medication Management As Directed
May give lesser potent ordered pain med per pt: Yes
preference::
Protocol:: Medication orders for pain may be administered in a
manner that supports deferring to patient preference
when the pt is:
- Requesting an ordered lesser potent pain medication.
Least to most potent pain medications are defined
as: acetaminophen < NSAID < tramadol < opioids
(morphine, oxycodone, hydromorphone).
- Requesting a lesser dose of the same medication IF
ORDERED.
- Requesting a less intrusive route of administration
if both routes are prescribed by the provider (PO <
IV).
03/23/24 04:56
Urinalysis Reflex To Culture Urgent
Date Specimen was Collected: 03/23/24
Time Specimen was Collected: 04:41
Urine Microscopic Reflex Cult Urgent
Urine Culture Urgent
LARRY Source: U
Specimen Description:
Date Specimen was Collected: 03/23/24
Time Specimen was Collected: 04:41
03/23/24 05:05
Bladder Scan As Directed
Follow Bladder Retention/Intermittent Cath Algorithm?: Yes
PRN if no void in __ hours: 6
Frequency: Per Retention Algorithm
If Bladder Scan Result >: 400
then:: Straight cath
Straight Cath As Directed
Frequency: Per Retention Algorithm
Additional Instructions: straight cath as needed per acute urinary retention algorithm for 24 hrs
Additional Instructions: for bladder scan greater than 400 mL
03/23/24 Breakfast
NPO
Allow oral meds: Yes
Allow clear liquids: No
NPO with Ice Chips: Yes
Flush (0.9% Sodium Chloride) [Flush (Nss)] See Dose Instructions IV PER PROTOCOL
US Abdomen Complete/Upper IN AM
Comment:
Reason For Exam: transaminitis
03/23/24 08:00
Aspirin Low Dose EC [Aspir Low (Enteric Coated)] 81 mg PO Daily
Enoxaparin Sodium [Lovenox] 30 mg SC DAILY
Labetalol [Trandate] 100 mg PO BID
Pregabalin [Lyrica] 50 mg PO TID
docosahexaenoic acid-epa 1 cap PO DAILY
03/23/24 11:00
Acetaminophen Routine
Comment: ADD ON
Complete Blood Count/No Diff IN AM
Comprehensive Metabolic Panel IN AM
Direct Bilirubin Routine
Comment: ADD ON
03/23/24 22:00
Amitriptyline [Elavil] 60 mg PO HS
Abnormal Lab Results
03/22/24 03/22/24 03/23/24
23:22 23:23 04:56
RBC 3.63 L 10^6/uL
(4.20-5.40)
Hgb 11.4 L g/dL
(12.0-16.0)
Hct 31.7 L %
(37.0-47.0)
MCH 31.4 H pg
(27.0-31.0)
RDW 15.3 H %
(11.5-14.5)
Creatinine 0.5 L mg/dL
(0.6-1.0)
Glucose 110 H mg/dl
(70-99)
Total Bilirubin 2.0 H mg/dl
(0.2-1.3)
AST 220 H U/L
(14-36)
ALT 112 H U/L
(0-35)
Ur Occult Blood Reflex 3+ A
(Negative)
Urine RBC 50-60 A /HPF
(0-2)
Urine Bacteria (Reflex) Moderate A
(Negative)
03/22/24 23:23
03/22/24 23:22
Vital Signs
Initial and Last Documented VS:
Initial Vital Signs
Temp Pulse Resp BP
98.2 F 85 24 187/101
03/22/24 23:02 03/22/24 23:02 03/22/24 23:02 03/22/24 23:02
Last Documented Vital Signs
Temp Pulse Resp BP Pulse Ox
98.5 F 83 14 116/76 98
03/23/24 15:00 03/23/24 21:01 03/23/24 15:00 03/23/24 21:01 03/23/24 07:00
<Elian Torres DO - Last Filed: 03/23/24 04:05>
Orders/Labs/Results
Orders:
Orders
03/22/24 23:22
Comprehensive Metabolic Panel Urgent
Lipase Urgent
03/22/24 23:23
Complete Blood Count/No Diff Urgent
03/23/24 00:43
CT Abd/pel W Iv And Oral Contr Urgent
Comment:
Reason For Exam: Nausea, abdominal cramping
0.9% Sodium Chloride 500 ml [Nss] 500 ml IV BOLUS
Iohexol [Omnipaque] See Protocol PO NOW STA
Ondansetron Injectable [Zofran] 4 mg IV NOW STA
03/23/24 00:48
Electrocardiogram (*1) Urgent
Reason for Study: Abdominal Pain
EKG- Treatment ONCE
03/23/24 01:10
Add On- LAB Urgent
Tests Added?: Lipase
03/23/24 01:13
Troponin I Urgent
03/23/24 04:35
Code Status As Directed
Resuscitation Status: Full Code
Bisacodyl [Dulcolax] 10 mg RECTAL [id number] PRN
Docusate W/Senna [Senokot-S] 1 tablet PO BIDPRN PRN
Polyethylene Glycol Powder [Miralax] 17 grams PO DAILYPRN PRN
Activity As Directed
Activity Level: With Assistance
Vital Signs As Directed
Frequency: Per unit guidelines
03/23/24 04:38
GASTROINTESTINAL CONSULT Routine
Consulting Provider: Stu Plunkett
Was physician already notified: No
Reason for consult: new transaminitis
Ondansetron Injectable [Zofran] 4 mg IV Q6HPRN PRN
Intake/ Output As Directed
Frequency: Per unit guidelines
DX Deep Vein Thrombosis Video Routine
03/23/24 04:41
Consult Notification Routine
Specialty to Notify: Gastroenterology
Date consulting provider notified: 03/23/24
Time consulting provider notified: 07:05
Notified:: Provider
Comment: tt
03/23/24 04:42
Cyclobenzaprine HCl [Flexeril] 5 mg PO Q8HPRN PRN
Oxycodone [Roxicodone] 5 mg PO Q4HPRN PRN
03/23/24 04:45
0.9% Sodium Chloride 1000 ml [Nss] 1,000 ml IV 100 mls/hr
03/23/24 04:50
Admit Patient As Directed
Co-Sign Provider:
Level of Care: Observation services
Assign to:: Medical/Surgical
Physician / Group: dr orellana
Diagnosis: new transaminitis, abd pain,nausea
HYDROmorphone [Dilaudid] 0.5 mg IV Q3HPRN PRN
PRN Pain Medication Management As Directed
May give lesser potent ordered pain med per pt: Yes
preference::
Protocol:: Medication orders for pain may be administered in a
manner that supports deferring to patient preference
when the pt is:
- Requesting an ordered lesser potent pain medication.
Least to most potent pain medications are defined
as: acetaminophen < NSAID < tramadol < opioids
(morphine, oxycodone, hydromorphone).
- Requesting a lesser dose of the same medication IF
ORDERED.
- Requesting a less intrusive route of administration
if both routes are prescribed by the provider (PO <
IV).
03/23/24 04:56
Urinalysis Reflex To Culture Urgent
Date Specimen was Collected: 03/23/24
Time Specimen was Collected: 04:41
Urine Microscopic Reflex Cult Urgent
Urine Culture Urgent
LARRY Source: U
Specimen Description:
Date Specimen was Collected: 03/23/24
Time Specimen was Collected: 04:41
03/23/24 05:05
Bladder Scan As Directed
Follow Bladder Retention/Intermittent Cath Algorithm?: Yes
PRN if no void in __ hours: 6
Frequency: Per Retention Algorithm
If Bladder Scan Result >: 400
then:: Straight cath
Straight Cath As Directed
Frequency: Per Retention Algorithm
Additional Instructions: straight cath as needed per acute urinary retention algorithm for 24 hrs
Additional Instructions: for bladder scan greater than 400 mL
03/23/24 Breakfast
NPO
Allow oral meds: Yes
Allow clear liquids: No
NPO with Ice Chips: Yes
Flush (0.9% Sodium Chloride) [Flush (Nss)] See Dose Instructions IV PER PROTOCOL
US Abdomen Complete/Upper IN AM
Comment:
Reason For Exam: transaminitis
03/23/24 08:00
Aspirin Low Dose EC [Aspir Low (Enteric Coated)] 81 mg PO Daily
Enoxaparin Sodium [Lovenox] 30 mg SC DAILY
Labetalol [Trandate] 100 mg PO BID
Pregabalin [Lyrica] 50 mg PO TID
docosahexaenoic acid-epa 1 cap PO DAILY
03/23/24 11:00
Acetaminophen Routine
Comment: ADD ON
Complete Blood Count/No Diff IN AM
Comprehensive Metabolic Panel IN AM
Direct Bilirubin Routine
Comment: ADD ON
03/23/24 22:00
Amitriptyline [Elavil] 60 mg PO HS
Abnormal Lab Results
03/22/24 03/22/24 03/23/24
23:22 23:23 04:56
RBC 3.63 L 10^6/uL
(4.20-5.40)
Hgb 11.4 L g/dL
(12.0-16.0)
Hct 31.7 L %
(37.0-47.0)
MCH 31.4 H pg
(27.0-31.0)
RDW 15.3 H %
(11.5-14.5)
Creatinine 0.5 L mg/dL
(0.6-1.0)
Glucose 110 H mg/dl
(70-99)
Total Bilirubin 2.0 H mg/dl
(0.2-1.3)
AST 220 H U/L
(14-36)
ALT 112 H U/L
(0-35)
Ur Occult Blood Reflex 3+ A
(Negative)
Urine RBC 50-60 A /HPF
(0-2)
Urine Bacteria (Reflex) Moderate A
(Negative)
03/22/24 23:23
03/22/24 23:22
Vital Signs
Initial and Last Documented VS:
Initial Vital Signs
Temp Pulse Resp BP
98.2 F 85 24 187/101
03/22/24 23:02 03/22/24 23:02 03/22/24 23:02 03/22/24 23:02
Last Documented Vital Signs
Temp Pulse Resp BP Pulse Ox
98.5 F 83 14 116/76 98
03/23/24 15:00 03/23/24 21:01 03/23/24 15:00 03/23/24 21:01 03/23/24 07:00
Suhaillt;Florinda Amin PA-C - Last Filed: 03/23/24 21:33>
MDM/Problems Addressed
Differential Diagnosis Includes:
78yoF here with abdominal cramping and nausea. Recently discharged 2 days ago after an admission for a L hip fracture. No CP/SOB. She is hypertensive with otherwise normal vitals. She is non-toxic appearing. No signs of peritonitis on abdominal
exam. Differential diagnosis includes but is not limited to: gastroenteritis, gastritis, pancreatitis, biliary colic, ileus, constipation, nonspecific abdominal pain
Initial ED plan: Check abdominal labs, troponin/EKG, UA, and CT abdomen. IV Zofran for symptoms.
<Florinda Amin PA-C - Last Filed: 03/23/24 21:33>
*Critical Care Note
Total Time (30-74mins, 75-104mins- exclusive of procedures): Not Applicable
<Florinda Amin PA-C - Last Filed: 03/23/24 21:33>
Update Note
Update Note:
Labs show a transaminitis with AST 220, ALT 112, and total bilirubin of 2.0. This appears worse from labs two days ago. White count and lipase are normal. Patient signed out to Dr. Torres pending CT results.
CT ABDOMEN AND PELVIS with oral and IV contrast
IMPRESSION:
No bowel obstruction or inflammation.
Unremarkable gallbladder, pancreas, and kidneys.
Left femur intramedullary cuca with dynamic hip screw bypassing a comminuted intertrochanteric fracture. There is overlying stranding and a few foci of soft tissue gas.
Fluid within the left iliopsoas bursa.
Trace bilateral pleural effusions.
Moderate atherosclerosis. No AAA.
<Elian Torres, - Last Filed: 03/23/24 04:05>
Update Note
Update Note:
CT ABDOMEN AND PELVIS with oral and IV contrast
IMPRESSION:
No bowel obstruction or inflammation.
Unremarkable gallbladder, pancreas, and kidneys.
Left femur intramedullary cuca with dynamic hip screw bypassing a comminuted intertrochanteric fracture. There is overlying stranding and a few foci of soft tissue gas.
Fluid within the left iliopsoas bursa.
Trace bilateral pleural effusions.
Moderate atherosclerosis. No AAA.
ED Attending Note
<Florinda Amin PA-C - Last Filed: 03/23/24 21:33>
-
Portions of this chart may have been created with voice recognition software.� Occasional wrong word or��sound alike� substitutions may have occurred due to the inherent limitations of voice recognition software.
Discharge Plan
Departure
Patient Disposition: Admit
Date of Disposition: 03/23/24
Time of Disposition: 04:04
Admit to: Telemetry
Presentation/result/management discussed w/ accepting MD/DO: Hospitalist
Condition: Fair
Discharge Problem:
Abdominal pain, Nausea & vomiting
Interventions
Interventions:
*Risk Screen - Suicide Last Done: 03/23/24 06:03
*General Assessment Last Done: 03/22/24 23:02
*Neglect/Abuse Screening Last Done: 03/22/24 23:02
ED- Fall Risk Assessment Last Done: 03/23/24 04:07
*ED COVID-19 Vaccine History Last Done: 03/23/24 04:12
*Nursing Disposition Last Done: 03/23/24 05:30
FF-Uedgeh-Vkfcnygbfa Assessment Last Done: 03/22/24 23:32
Discharge Date and Time
Discharge Date/Time: 03/23/24 05:30
[2024-03-23] MEDS: NSS 500 IV (01:13)
[2024-03-23] MEDS: ZOFRAN 4 MG IV (01:14)
[2024-03-23] MEDS: OMNIPAQUE 50 ML PO (01:14)
[2024-03-23 01:45] LABS: Lipase 78 U/L (23-300)
[2024-03-23 01:56] LABS: Troponin I 0.026 ng/ml
--- NOTE | 2024-03-23 04:49 | HPS.HSE ---
Family Physician
-
Family Physician: NOT KNOW UNKNOWN - PT DOES
Chief Complaint
-
abdominal pain
History of Present Illness
HPI
78F from SNF HX HTN, HLD, Lupus seen at ER for evalaution of nausea and abdominal pain.
- around [place] , sudden onset of generalized abdominal pain plus nausea
- recently hospitalized for a left hip fracture and underwent IM nail on 03/17/2024.
- discharged to a short-term rehab facility 2 days ago.
- urinating frequently since her surgery.
- Noted frequent Tylenol schedule ordrs during last admission
Patient denies any chest pain, shortness of breath, diarrhea, fevers. No previous abdominal surgeries. Of note, patient was tested for COVID earlier today and test was negative.
Medical History
Past Medical History
Past Medical History: Reports HTN and Other (Lupus )
Past Surgical History: Reports Orthopedic (IM nail on 03/17/2024. for left hip fracture)
Social History
Tobacco: Non-smoker
Alcohol: None
Personal:
Living: With Family
Family History
Family History: Not pertinent
Allergies / Home Medications
Allergies reflects when Allergies were last updated in [facility].
Home Medications with original date entered in [facility]
Allergy/Medication List:
Allergies
Allergy/AdvReac Type Severity Reaction Status Date / Time
Penicillins Allergy mouth sores Verified 03/23/24 01:15
Home Medications
aspirin 81 mg tablet,delayed release 81 mg PO Daily 04/26/18
labetalol 100 mg tablet 100 mg PO BID 04/26/18
pregabalin 50 mg capsule 50 mg PO TID 04/26/18
amitriptyline 10 mg tablet 60 mg PO HS 06/19/18
docosahexaenoic acid (dha)-epa 120 mg-180 mg capsule 1 cap PO DAILY 06/19/18
ascorbic acid (vitamin C) 500 mg tablet (Vitamin C) 500 mg PO DAILY 03/16/24
cholecalciferol (vitamin D3) 25 mcg (1,000 unit) tablet (Vitamin D3) 25 mcg PO BID 03/16/24
therapeutic multivitamin 1 tab PO DAILY 03/16/24
vitamin B complex 1 tab PO DAILY 03/16/24
cyclobenzaprine 10 mg tablet 5 mg (1/2 x 10 mg) PO Q8HPRN PRN spasm in hip area 7 days #4 tabs 03/21/24
docusate sodium 100 mg capsule 100 mg PO BID 14 days #28 caps 03/21/24
enoxaparin 40 mg/0.4 mL subcutaneous syringe 40 mg (0.4 mL) SC DAILY 24 days #9.6 mL 03/21/24
oxycodone 5 mg tablet 5 mg PO Q4HPRN PRN moderate pain #4 tabs 03/21/24
acetaminophen 325 mg tablet 650 mg PO Q4H PRN pain or fever 03/23/24
bisacodyl 10 mg rectal suppository (Dulcolax (bisacodyl)) 10 mg OK DAILY PRN prn constipation 03/23/24
magnesium hydroxide 400 mg/5 mL oral suspension (Milk of Magnesia) 400 mg PO DAILY PRN constipation 03/23/24
ondansetron 4 mg disintegrating tablet 4 mg PO Q6H PRN nausea 03/23/24
sodium phosphates 19 gram-7 gram/118 mL enema (Fleet Enema) 118 ml OK ONCE PRN if MOM ineffective; constipation 03/23/24
Review of Systems
-
Constitutional: Reports No Symptoms
EENT: Reports No Symptoms
Respiratory: Reports No Symptoms
Cardiac: Reports No Symptoms
Abdomen/GI: Reports Abdominal Pain and Nausea
: Reports No Symptoms
Musculoskeletal: Reports No Symptoms
Skin: Reports No Symptoms
Neurological: Reports No Symptoms
Endocrine: Reports No Symptoms
Hematologic/Lymphatic: Reports No Symptoms
Psych: Reports No Symptoms
Physical Exam
Vital Signs
Vital Signs
Temp Pulse Resp BP Pulse Ox
98.2 F 90 19 147/86 99
03/22/24 23:02 03/23/24 04:08 03/23/24 01:45 03/23/24 04:08 03/23/24 04:08
Physical Exam
General: No Apparent Distress and Other (thin )
Respiratory: Clear
Cardiac: S1/S2
Breast: Deferred by me
GI: Soft, Non Distended, Normal Bowel Sounds and Tender (mid abdomen )
Musculoskeletal: No Edema
Neuro: AO x 3, No Motor Deficits and Nonfocal/grossly intact
Psych: Calm
Laboratory Results
-
03/22/24 23:23
03/22/24 23:22
Laboratory Results
Total Bilirubin 2.0 mg/dl (0.2-1.3) H 03/22/24 23:22
AST 220 U/L (14-36) H 03/22/24 23:22
ALT 112 U/L (0-35) H 03/22/24 23:22
Alkaline Phosphatase 107 U/L (38-126) 03/22/24 23:22
Troponin I 0.026 ng/ml 03/23/24 01:13
Lipase 78 U/L (23-300) 03/22/24 23:22
Data Reviewed
-
CT Scan: Report Reviewed by me
Lab Data: Labs Reviewed by me
Impression/Plan
-
Reviewed VS: BP 187/100 afebrile
Data
Hgb 11.4
unremarkable BMP
TB 2.0
AST 220 -was 83 on 03/21/24
CT AP
no BWO
Unremarkable GB, pancreas and Kidneys
Last hospitalist admission: 03/16/24 - 03/21/24
PDX: Left Hip fracture status post surgical repair. Acute blood loss post op anemia.
03/17/24 insertion of left cephalomedullary nail on 03/17.
ASSESSMENT & PLAN
Interval new transaminitis suspect Drug induced Liver injury (DILI) due to q4h schedule Tylenol during last admission
Associated with Abdominal pian but NEG CT AP
Couple of hypotensive episode on las admission as low as BP 93/59
- avoid Tylenol and other hepatotoxic agents
- US complete abdomen
- Clear and IVF
- Trend LFTs
- GI consult
Abdominal cramping with new onset of dysuria at his hr
Straight cath few times on last admission for acute urinary retention
HX multiple UTIS
- HX PCN allergy tolerates 2 doses of Ancef on last admission
- Pending UA
[facility] HTN
- cont Labetalol
Lupus HX with Neuropathic pain
- on Lyrica and Nortriptyline
S/P IM nail on 03/17/2024. for left hip fracture
- PT/OT
- cont LMWH for DVT Px
DVT Px: on LMWH
Code: Full code
Obs MS
[2024-03-23 05:13] LABS: Urine Albumin Negative (Neg - Trace); Urine Bilirubin Negative (Negative); Urine Character Clear (Clear); Urine Color Yellow; Urine Glucose Negative (Negative); Urine Ketone Negative (Negative); Urine Leukocyte Negative (Negative); Urine Nitrite Negative (Negative); Urine Occult Blood 3+ (Negative); Urine Urobilinogen Negative (Neg - 1+)
[2024-03-23] MEDS: NSS 1000 IV ×2 (06:08→16:11)
[2024-03-23 06:16] LABS: Urine Bacteria Moderate (Negative); Urine Red Blood Cell 50-60 /HPF (0-2)
[2024-03-23] MEDS: COMPAZINE 10 MG IV ×2 (08:57→17:16)
[2024-03-23] MEDS: TRANDATE 100 MG PO ×2 (09:00→21:01)
[2024-03-23] MEDS: LOVENOX 30 MG SC (09:00)
[2024-03-23] MEDS: ASPIR LOW (ENTERIC COATED) 81 MG PO (09:00)
[2024-03-23] MEDS: LYRICA 50 MG PO ×3 (09:00→21:01)
--- NOTE | 2024-03-23 10:17 | CM ---
strategic partner development manager reviewed patient's chart and met with patient and patient lives with her spouse in a 2 story home, one step to enter full flight to 2nd floor, patient is independent with adl's and ambulation, no dme, patient was just discharged from
[facility] on 03/21/24 and was sent to [facility].
Patient admitted under OBS, PAZ letter explained to patient and signed.
Pharmacy: [facility]
PCP: Dr. Mustafa
Plan; Possible return to [facility] depending on physical therapy evaluation.
--- NOTE | 2024-03-23 10:21 | W.PN.HOSP.TC ---
Today's Communication/Plan
-
See plan
Assessment / Plan
Assessment / Plan
Impression:
Presentation with persistent nausea, dry heaves and abdominal cramps.
Abnormal LFTs, mixed pattern with concern for DILI.
Recent hospitalization for left hip fracture, status post left cephalomedullary nail 03/17
Acute postoperative anemia requiring transfusion.
Other conditions:
Essential hypertension
Peripheral neuropathy
Lupus
Plan:
Presentation with persistent nausea, dry heaves and abdominal pain.
Exam with benign abdomen.
Noted with elevation of LFTs mixed pattern.
CT scan of the abdomen and pelvis, abdominal ultrasound with no hepatobiliary abnormalities.
Clinically and radiologically with no evidence of intestinal obstruction or obstipation.
Concern for drug-induced liver injury since being treated with Tylenol for pain recent left hip fracture.
Hold further Tylenol.
IV hydration.
Clear liquid diet.
Follow LFT.
If persistent symptoms, consider GI evaluation.
Urinalysis not consistent with UTI.
Status post left hip fracture/left cephalomedullary nail 03/17.
Continue physical therapy
Adjust analgesic regimen.
DVT prophylaxis with Lovenox
Acute postoperative anemia with low with hemoglobin at 6.2, required 2 units of packed red blood cells transfused over the last hospitalization.
Hemoglobin 11.4 on presentation
Monitor CBC
Essential hypertension
Continue labetalol
Peripheral neuropathy
Continue amitriptyline and pregabalin
Lupus with no evidence of flareup.
Currently not on any immunosuppressive medications.
Full code.
Anticipated Discharge: 24 - 48 hours
Subjective/Interval History
-
Date of Service: March 23, 2024
Objective Data
-
Labs:
Laboratory Results
03/22/24 03/22/24 03/23/24
23:22 23:23 06:00
WBC 6.0 Pending
Hgb 11.4 L Pending
Hct 31.7 L Pending
Plt Count 208 D Pending
Sodium 136 Pending
Potassium 4.2 Pending
Chloride 101 Pending
Carbon Dioxide 28 Pending
BUN 15 Pending
Creatinine 0.5 L Pending
Glucose 110 H Pending
Calcium 9.6 Pending
Total Bilirubin 2.0 H Pending
AST 220 H Pending
ALT 112 H Pending
Alkaline Phosphatase 107 Pending
Vital Signs:
Vital Signs
Temp Pulse Resp BP Pulse Ox
98.5 F 89 14 161/95 98
03/23/24 07:00 03/23/24 07:00 03/23/24 07:00 03/23/24 07:00 03/23/24 07:00
I&O
03/22/24 03/23/24 03/24/24
06:59 06:59 06:59
Output Total 800 / 800
Balance -800 / -800
Physical Exam
-
General: Well Developed and No Apparent Distress
HEENT: Normocephalic, Atraumatic and Moist Mucous Membranes
Respiratory: Clear to Auscultation
Cardiac: Regular Rhythm and S1/S2; Negative Murmur, Rub or Gallop
GI: Soft, Nontender, Nondistended and Normal Bowel Sounds; Negative Organomegaly
Rectal: Deferred by Provider
Musculoskeletal: No Clubbing, No Cyanosis and No Edema
Skin: Negative Rash
Neuro: Awake, Alert, Oriented, AO x 3 and Nonfocal/Grossly Intact
--- NOTE | 2024-03-23 11:51 | CON.GI ---
Addendum entered and electronically signed by Stu Plunkett MD 03/23/24 19:26:
I saw and examined the patient.
The TAG MARKER's note was reviewed and I agree with the note.
-- Abdominal pain/nausea/constipation -possible secondary to opioids
-- Elevated liver test. Ultrasound abdomen no acute pathology.
-- recent femoral fracture
plan
Will start on bowel regimen
Continue to trend LFT
If LFTs persistently elevated will consider MRI/MRCP
Minimize opioid use
Antiemetics as needed
Original Note:
Consultation
-
Date/Time Consultation Requested: 03/23/24 0430
Date/Time Consultation Performed: 03/23/24 1150
Requesting Provider: MANNIE Kimbrough
Performing Provider: MANNIE Worthy, Stu Plunkett MD
Reason for Consultation: increased LFT's, abdominal pain
Medical History
Chief Complaint / HPI
Chief Complaint: abdominal pain, nausea
History of Present Illness:
Pt is a 78yo with hx HTN, hyperlipidemia, lupus, neuropathy with recent admission 03/16-03/21 with fall and left intertrochanteric femoral fracture and noted anemia now returns with abdominal pain with nausea. On admission noted with further rise in
Liver functions with bili 2, AST 220, ALT 112 and alk phos 107 with labs 03/21 bili 1.3, AST 83, ALT 38, alk phos 83. On admission CT and US completed without significant findings.
Pt states after last admission she went to [facility]. She reports hx chronic constipation and small stools with assist of dried apricots daily. She report small stools last admission and use of narcotic for pain control. She state after
discharge she has increased urination then began with crampy abdominal pain with nausea and dry heaves no vomiting. She typically has a good appetite but decreased with current symptoms. She denies dysphagia, GERD, abdominal pain, diarrhea, or
bleeding. Hx colonoscopy stable several years ago.
Past Medical History
Past Medical History: HTN, Hypercholesterolemia and Other (lupus, neuropathy)
Past Surgical History: Orthopedic (intertrochanteric femur fx with repair 03/17)
Social History
Tobacco: Non-Smoker
Alcohol: None
Drug: None
Personal:
Living: [facility] (for hip rehab with spouse prior to admission)
Family History
Family History: Other (no family hx GI issues )
Allergies / Home Medications
Allergy/AdvReac Type Severity Reaction Status Date / Time
Penicillins Allergy mouth sores Verified 03/23/24 01:15
�Medication �Instructions �Recorded
aspirin 81 mg tablet,delayed 81 mg PO Daily 04/26/18
release
labetalol 100 mg tablet 100 mg PO BID 04/26/18
pregabalin 50 mg capsule 50 mg PO TID 04/26/18
amitriptyline 10 mg tablet 60 mg PO HS 06/19/18
docosahexaenoic acid (dha)-epa 120 1 cap PO DAILY 06/19/18
mg-180 mg capsule
ascorbic acid (vitamin C) 500 mg 500 mg PO DAILY 03/16/24
tablet (Vitamin C)
cholecalciferol (vitamin D3) 25 25 mcg PO BID 03/16/24
mcg (1,000 unit) tablet (Vitamin
D3)
therapeutic multivitamin 1 tab PO DAILY 03/16/24
vitamin B complex 1 tab PO DAILY 03/16/24
cyclobenzaprine 10 mg tablet 5 mg (1/2 x 10 mg) PO Q8HPRN PRN 03/21/24
spasm in hip area 7 days #4 tabs
docusate sodium 100 mg capsule 100 mg PO BID 14 days #28 caps 03/21/24
enoxaparin 40 mg/0.4 mL 40 mg (0.4 mL) SC DAILY 24 days 03/21/24
subcutaneous syringe #9.6 mL
oxycodone 5 mg tablet 5 mg PO Q4HPRN PRN moderate pain 03/21/24
#4 tabs
acetaminophen 325 mg tablet 650 mg PO Q4H PRN pain or fever 03/23/24
bisacodyl 10 mg rectal suppository 10 mg ND DAILY PRN prn constipation 03/23/24
(Dulcolax (bisacodyl))
magnesium hydroxide 400 mg/5 mL 400 mg PO DAILY PRN constipation 03/23/24
oral suspension (Milk of Magnesia)
ondansetron 4 mg disintegrating 4 mg PO Q6H PRN nausea 03/23/24
tablet
sodium phosphates 19 gram-7 118 ml ND ONCE PRN if MOM 03/23/24
gram/118 mL enema (Fleet Enema) ineffective; constipation
Review of Systems
-
History Source: Patient and Family
Constitutional: Reports Weight Loss and Fatigue
EENT: Reports No Symptoms
Respiratory: Reports No Symptoms
Abdomen/GI: Reports Abdominal Pain, Nausea (dry heaves ) and Constipated
: Reports Frequency
Musculoskeletal: Reports Other (left pain )
Neurological: Reports Weakness
Endocrine: Reports No Symptoms
Hematologic/Lymphatic: Reports No Symptoms
Vital Signs
Temp Pulse Resp BP Pulse Ox
98.5 F 89 14 161/95 98
03/23/24 07:00 03/23/24 07:00 03/23/24 07:00 03/23/24 07:00 03/23/24 07:00
Physical Exam
Exam
General: Well Developed, Well Nourished and No Apparent Distress
Respiratory: Clear
Cardiac: Regular Rhythm
GI: Soft, Non Tender and Non Distended
Rectal: Other (pt refused )
Musculoskeletal: No Clubbing, No Cyanosis and Other (left left swelling and hematoma )
Skin: Warm and Dry
Neuro: Awake, Alert and AO x 3
Psych: Calm
Results
WBC 6.0 10^3/uL (4.8-10.8) 08/18/24 23:23
Hgb 11.4 g/dL (12.0-16.0) L 03/22/24 23:23
Hct 31.7 % (37.0-47.0) L 03/22/24 23:23
MCV 87.3 fL (81.0-99.0) 03/22/24 23:23
Plt Count 208 10^3/uL (130-400) D 03/22/24 23:23
Sodium 136 mmol/L (135-145) 03/22/24 23:22
Potassium 4.2 mmol/L (3.5-5.1) 03/22/24 23:22
Chloride 101 mmol/L (98-107) 03/22/24 23:22
Carbon Dioxide 28 mmol/L (22-30) 03/22/24 23:22
BUN 15 mg/dl (7-17) 03/22/24 23:22
Creatinine 0.5 mg/dL (0.6-1.0) L 03/22/24 23:22
Calcium 9.6 mg/dl (8.4-10.2) 03/22/24 23:22
Total Bilirubin 2.0 mg/dl (0.2-1.3) H 03/22/24 23:22
AST 220 U/L (14-36) H 03/22/24 23:22
ALT 112 U/L (0-35) H 03/22/24 23:22
Alkaline Phosphatase 107 U/L (38-126) 03/22/24 23:22
Lipase 78 U/L (23-300) 03/22/24 23:22
Diagnostic Image Results:
03/23 CT Abd/pel W Iv And Oral Contr
1. No CT abnormalities identified to explain the patient's symptoms.
2. Trace bilateral pleural effusions. Suspected bibasilar subsegmental atelectasis.
3. Noninflammatory fluid within the left iliopsoas bursa.
4. Changes of recent prior left hip surgery.
03/23 US abdomen
No acute hepatobiliary abnormalities.
GALLBLADDER: No stones, sludge, wall thickening or pericholecystic fluid. No songraphic Bolanos sign elicited.
BILE DUCTS: Extra-hepatic common bile duct measures 6.5 mm. No intrahepatic ductal dilation.
Prior GI Procedures:
EGD: none
Colonoscopy: stable years ago
Assessment / Plan
-
Pt is a 78yo with hx HTN, hyperlipidemia, lupus, neuropathy with recent admission 03/16-03/21 with fall and left intertrochanteric femoral fracture and noted anemia now returns with abdominal pain with nausea and constipation. On admission noted
with further rise in Liver functions with bili 2, AST 220, ALT 112 and alk phos 107 with labs 03/21 bili 1.3, AST 83, ALT 38, alk phos 83. On admission CT and US completed without significant findings.
-nausea/dry heaves
-chronic constipation
-increased LFT's
-increased urination
-post-op anemia
other med problems:
-lupus
-neuropathy
-hyperlipidemia
-HTN
PLAN:
Etiology of symptoms related to side effects of medication- narcotic use, constipation vs other
pt declined rectal exam to look for increased constipation but reports chronic issue will add Miralax daily and dulcolax now
with elevated LFT may be med related vs other
check Tylenol level
add D bili as bili may be elevated with noted left hematoma
if continued symptoms or further rise in LFT's consider MRI/MRCP
cont antiemetics
diet as tolerated
limit narcotics as able
trend hbg with some anemia
-
-
Thank you for consultation and allowing me to participate in the patient's care. Please call the excavation laborer GI physician during the after hours with any questions or concerns.
[2024-03-23] MEDS: MIRALAX 17 GRAMS PO (13:28)
[2024-03-23] MEDS: DULCOLAX 10 MG RECTAL (13:28)
[2024-03-23 13:44] LABS: Hematocrit 29.9 % (37.0-47.0); Hemoglobin 10.5 g/dL (12.0-16.0); Mean Corp Hgb Conc. 35.1 g/dL (33.0-37.0); Mean Corpuscular Volume 91.2 fL (81.0-99.0); Mean Platelet Volume 9.4 fL (7.4-10.4); Platelet Count 234 10^3/uL (130-400); Red Blood Cell Count 3.28 10^6/uL (4.20-5.40); Red Cell Dist. Width 15.1 % (11.5-14.5); White Blood Cell Count 6.4 10^3/uL (4.8-10.8)
[2024-03-23 14:22] LABS: ALT (SGPT) 107 U/L (0-35); AST (SGOT) 183 U/L (14-36); Acetaminophen < 10 ug/ml (10-30); Albumin 3.2 g/dl (3.5-5.0); Alkaline Phosphatase 98 U/L (38-126); Blood Urea Nitrogen 15 mg/dl (7-17); Calcium 8.7 mg/dl (8.4-10.2); Carbon Dioxide 25 mmol/L (22-30); Chloride 101 mmol/L (98-107); Direct Bilirubin 0.1 mg/dl (0.0-0.4); Estimated Creatinine Clearance 56 ml/min; Glucose 85 mg/dl (70-99); Potassium 4.4 mmol/L (3.5-5.1); Sodium 132 mmol/L (135-145); Total Bilirubin 1.6 mg/dl (0.2-1.3); Total Protein 5.6 g/dl (6.3-8.2); eGFR > 60.00
[2024-03-23] MEDS: ELAVIL 60 MG PO (21:01)
[2024-03-24] MEDS: NSS 1000 IV ×2 (02:10→12:39)
[2024-03-24 07:45] VITALS: BP 123/77
[2024-03-24 08:21] LABS: % Basophils 0.4 % (0-2); % Eosinophils 2.1 % (0-6); % Immature Granulocytes 0.8 % (0-0.5); % Lymphocytes 12.8 % (20.5-51.1); % Monocytes 12.2 % (1.7-9.3); % Neutrophils 71.7 % (42.2-75.2); Absolute Eosinophils 0.1 10^3/uL (0-0.7); Absolute Lymphocytes 0.6 10^3/uL (1.2-3.4); Absolute Monocytes 0.6 10^3/uL (0.1-0.6); Absolute Neutrophils 3.4 10^3/uL (1.4-6.5); Hemoglobin 8.8 g/dL (12.0-16.0); Mean Corp Hgb Conc. 35.2 g/dL (33.0-37.0); Mean Corpuscular Hgb 32.5 pg (27.0-31.0); Mean Corpuscular Volume 92.3 fL (81.0-99.0); Mean Platelet Volume 9.2 fL (7.4-10.4); Nucleated Red Blood Cells % 0 %; Platelet Count 194 10^3/uL (130-400); Red Blood Cell Count 2.71 10^6/uL (4.20-5.40); Red Cell Dist. Width 15.1 % (11.5-14.5); White Blood Cell Count 4.8 10^3/uL (4.8-10.8)
[2024-03-24 08:42] LABS: INR 1.12; PT 14.2 Sec (11.4-14.6)
[2024-03-24 08:54] LABS: ALT (SGPT) 146 U/L (0-35); AST (SGOT) 241 U/L (14-36); Albumin 2.6 g/dl (3.5-5.0); Alkaline Phosphatase 84 U/L (38-126); Blood Urea Nitrogen 16 mg/dl (7-17); Calcium 7.7 mg/dl (8.4-10.2); Carbon Dioxide 21 mmol/L (22-30); Chloride 109 mmol/L (98-107); Estimated Creatinine Clearance 56 ml/min; Glucose 77 mg/dl (70-99); Potassium 3.6 mmol/L (3.5-5.1); Sodium 135 mmol/L (135-145); Total Bilirubin 1.3 mg/dl (0.2-1.3); Total Protein 4.8 g/dl (6.3-8.2); eGFR > 60.00
[2024-03-24] MEDS: LYRICA PO (09:13)
[2024-03-24] MEDS: COMPAZINE 10 MG IV (09:14)
[2024-03-24] MEDS: LOVENOX 30 MG SC (10:08)
[2024-03-24] MEDS: MIRALAX 17 GRAMS PO (10:08)
[2024-03-24] MEDS: LYRICA 50 MG PO ×3 (10:09→21:38)
[2024-03-24] MEDS: TRANDATE 100 MG PO ×2 (10:09→21:39)
[2024-03-24] MEDS: ASPIR LOW (ENTERIC COATED) 81 MG PO (10:10)
[2024-03-24] MEDS: SENOKOT-S 1 TABLET PO (12:54)
[2024-03-24 14:01] VITALS: BP 156/81; PULSE 83; O2SAT 97
--- NOTE | 2024-03-24 15:19 | W.PN.GI.CBS2 ---
Addendum entered and electronically signed by Nando Garcia MD 03/24/24 15:52:
I saw and examined the patient.
The REVIEW RN or PA's note was reviewed and I agree with the note.
Comment: Feeling better today. Tolerated clears. Nausea improved
ABD soft NTND
REC:
Check rpt LFTs tomorrow. If continued rise, check MRI if OK with her metal in arm and linx
Advance diet as tolerated
Original Note:
Today's Communication / Plan
-
Etiology of symptoms related to side effects of medication- narcotic use, constipation vs other
improvement today will advance diet
cont antiemetics with less use today
limit narcotics -- pt has not been taking since admission
cont Miralax daily
with elevated LFT may be med related vs other still some increased today
Tylenol level less than 10
add D bili as bili may be elevated with noted left hematoma
if continued symptoms or further rise in LFT's consider MRI/MRCP-- pt would like to hold for now -- unsure of she can get with linq monitor and hx multiple hardware in arm
add hepatitis panel
repeat LFT's in AM-- some chronic AST elevation noted in past
CT and US with stable liver finding no duct dilation or stones
trend hbg with some anemia may be post -op with some bruising
updated spouse and daughter dereck at [facility] [phone],
Assessment / Plan
-
Pt is a 78yo with hx HTN, hyperlipidemia, lupus, neuropathy with recent admission 03/16-03/21 with fall and left intertrochanteric femoral fracture and noted anemia now returns with abdominal pain with nausea and constipation. On admission noted
with further rise in Liver functions with bili 2, AST 220, ALT 112 and alk phos 107 with labs 03/21 bili 1.3, AST 83, ALT 38, alk phos 83. On admission CT and US completed without significant findings.
-nausea/dry heaves
-chronic constipation
-increased LFT's
-increased urination
-post-op anemia
other med problems:
-lupus
-neuropathy
-hyperlipidemia
-HTN
-hx linq monitor
PLAN:
Etiology of symptoms related to side effects of medication- narcotic use, constipation vs other
improvement today will advance diet
cont antiemetics with less use today
limit narcotics -- pt has not been taking since admission
cont Miralax daily
with elevated LFT may be med related vs other still some increased today
Tylenol level less than 10
add D bili as bili may be elevated with noted left hematoma
if continued symptoms or further rise in LFT's consider MRI/MRCP-- pt would like to hold for now -- unsure of she can get with linq monitor and hx multiple hardware in arm
add hepatitis panel
repeat LFT's in AM-- some chronic AST elevation noted in past
CT and US with stable liver finding no duct dilation or stones
trend hbg with some anemia may be post -op with some bruising
updated spouse and daughter dereck at [facility] [phone],
Subjective
Subjective
Date of Service: March 24, 2024
on clear diet 03/23 brown stool feeling better from nausea standpoint, would like to try advanced diet
Objective
Data Reviewed
Laboratory Data:
Laboratory Results
03/24/24 07:07
03/24/24 07:07
Laboratory Results
PT 14.2 Sec (11.4-14.6) 03/24/24 07:07
INR 1.12 03/24/24 07:07
Total Bilirubin 1.3 mg/dl (0.2-1.3) 03/24/24 07:07
AST 241 U/L (14-36) H 03/24/24 07:07
ALT 146 U/L (0-35) H 03/24/24 07:07
Alkaline Phosphatase 84 U/L (38-126) 03/24/24 07:07
Lipase 78 U/L (23-300) 03/22/24 23:22
Vital Signs and I&O:
Vital Signs
Temp Pulse Resp BP Pulse Ox
98.0 F 85 18 123/77 98
03/24/24 07:45 03/24/24 07:45 03/24/24 07:45 03/24/24 07:45 03/24/24 07:45
I&O
03/23/24 03/24/24 03/25/24
06:59 06:59 06:59
Intake Total 480 / 480
Output Total 800 / 800
Balance -800 / -800 480 / 480
Physical Exam
Physical Exam
HEENT: Anicteric and Moist mucous membranes
Cardiology: Normal Sinus Rhythm
Pulmonary: Clear
GI: Soft, Non Distended and Non Tender
Extremities: No Edema
Neuro: Non Focal
[2024-03-24 15:54] VITALS: BP 103/54
--- NOTE | 2024-03-24 17:50 | W.PN.HOSP.TC ---
Today's Communication/Plan
-
Advance diet
Follow LFT
Single dose of Rocephin for bacteriuria.
Assessment / Plan
Assessment / Plan
Impression:
Presentation with persistent nausea, dry heaves and abdominal cramps.
Abnormal LFTs, mixed pattern with concern for DILI.
Recent hospitalization for left hip fracture, status post left cephalomedullary nail 03/17
Acute postoperative anemia requiring transfusion.
Other conditions:
Essential hypertension
Peripheral neuropathy
Lupus
Plan:
Presentation with persistent nausea, dry heaves and abdominal pain.
Exam with benign abdomen.
Noted with elevation of LFTs mixed pattern.
CT scan of the abdomen and pelvis, abdominal ultrasound with no hepatobiliary abnormalities.
Clinically and radiologically with no evidence of intestinal obstruction or obstipation.
Concern for drug-induced liver injury since being treated with Tylenol for pain recent left hip fracture.
Hold further Tylenol.
Nausea improved.
LFTs trending down including normalized bilirubin.
Follow trend.
Advance diet.
Urinalysis not consistent with UTI
Urine culture with gram-negative pending final identification.
Given recent surgery, Hernandes catheter will provide single dose of ceftriaxone on 03/27
Status post left hip fracture/left cephalomedullary nail 03/17.
Continue physical therapy
Adjust analgesic regimen.
DVT prophylaxis with Lovenox
Acute postoperative anemia with low with hemoglobin at 6.2, required 2 units of packed red blood cells transfused over the last hospitalization.
Hemoglobin 11.4 on presentation
Monitor CBC
Essential hypertension
Continue labetalol
Peripheral neuropathy
Continue amitriptyline and pregabalin
Lupus with no evidence of flareup.
Currently not on any immunosuppressive medications.
Full code.
Anticipated Discharge: 24 - 48 hours
Subjective/Interval History
-
Date of Service: March 24, 2024
Objective Data
-
Labs:
Laboratory Results
03/24/24
07:07
WBC 4.8
Hgb 8.8 L
Hct 25.0 L
Plt Count 194
PT 14.2
INR 1.12
Sodium 135
Potassium 3.6
Chloride 109 H
Carbon Dioxide 21 L
BUN 16
Creatinine 0.5 L
Glucose 77
Calcium 7.7 L
Total Bilirubin 1.3
AST 241 H
ALT 146 H
Alkaline Phosphatase 84
Vital Signs:
Vital Signs
Temp Pulse Resp BP Pulse Ox
97.7 F 85 18 103/54 96
03/24/24 15:54 03/24/24 15:54 03/24/24 15:54 03/24/24 15:54 03/24/24 15:54
I&O
03/23/24 03/24/24 03/25/24
06:59 06:59 06:59
Intake Total 480 / 480
Output Total 800 / 800
Balance -800 / -800 480 / 480
Physical Exam
-
General: Well Developed and No Apparent Distress
HEENT: Normocephalic, Atraumatic and Moist Mucous Membranes
Respiratory: Clear to Auscultation
Cardiac: Regular Rhythm and S1/S2; Negative Murmur, Rub or Gallop
GI: Soft, Nontender, Nondistended and Normal Bowel Sounds; Negative Organomegaly
Rectal: Deferred by Provider
Musculoskeletal: No Clubbing, No Cyanosis and No Edema
Skin: Negative Rash
Neuro: Awake, Alert, Oriented, AO x 3 and Nonfocal/Grossly Intact
[2024-03-24] MEDS: ROCEPHIN 1000 MG IV (19:07)
[2024-03-24] MEDS: STERILE WATER FOR INJECTION 10 ML IV (19:08)
[2024-03-24] MEDS: ELAVIL 60 MG PO (21:38)
[2024-03-24 23:27] VITALS: BP 118/53
--- NOTE | 2024-03-25 03:20 | DOWNTIME ---
There was a [employer] Downtime on 03/25/2024 from 0100 to 03/25/2024 at 0252. Downtime documentation of patient's care, including medication administrations, has been reconciled in the electronic record per guidelines. Refer to the
patient's paper chart under the miscellaneous tab to see printed paper medication records and downtime forms.
--- NOTE | 2024-03-25 07:10 | W.PN.GI.CBS2 ---
Addendum entered and electronically signed by Nando Garcia MD 03/25/24 13:51:
I saw and examined the patient.
The TEACHER DRAMA or PA's note was reviewed and I agree with the note.
Comment: c/o back pain. Going for xray
REC:
LFTs are trending down
OK to hold off on MRI. Suspicion for CBD stone low
Tolerating diet- low fat
Trend LFTs
Original Note:
Today's Communication / Plan
-
improving LFT's
nausea improved tolerating diet
cont laxatives
hold MRI with improved labs and pt declines with back pain
work up for back pain per hospitalist
hbg stable
Assessment / Plan
-
Pt is a 78yo with hx HTN, hyperlipidemia, lupus, neuropathy with recent admission 03/16-03/21 with fall and left intertrochanteric femoral fracture and noted anemia now returns with abdominal pain with nausea and constipation. On admission noted
with further rise in Liver functions with bili 2, AST 220, ALT 112 and alk phos 107 with labs 03/21 bili 1.3, AST 83, ALT 38, alk phos 83. On admission CT and US completed without significant findings.
-nausea/dry heaves
-chronic constipation
-increased LFT's
-increased urination
-post-op anemia
other med problems:
-lupus
-neuropathy
-hyperlipidemia
-HTN
-hx linq monitor
PLAN:
Etiology of symptoms related to side effects of medication- narcotic use, constipation vs other
cont low fat diet
she c/o severe back pain work up per hospitalist
LFT's trending down etiology unclear pt wishes to hold on imaging with back pain
limit narcotics -- pt has not been taking since admission
cont Miralax daily and keep bowel moving
hepatitis panel pending
CT and US with stable liver finding no duct dilation or stones
hbg stable
updated spouse today and daughter dereck 03/24 ,
Subjective
Subjective
Date of Service: March 25, 2024
low fat diet 03/23 stools-- nausea improved but c/o severe back pain
Objective
Data Reviewed
Laboratory Data:
Laboratory Results
PT 14.2 Sec (11.4-14.6) 03/24/24 07:07
INR 1.12 03/24/24 07:07
Total Bilirubin 1.3 mg/dl (0.2-1.3) 03/24/24 07:07
AST 241 U/L (14-36) H 03/24/24 07:07
ALT 146 U/L (0-35) H 03/24/24 07:07
Alkaline Phosphatase 84 U/L (38-126) 03/24/24 07:07
Lipase 78 U/L (23-300) 03/22/24 23:22
Laboratory Tests
03/25/24
08:30
Total Bilirubin 1.3
AST 168 H
ALT 151 H
Alkaline Phosphatase 99
Vital Signs and I&O:
Vital Signs
Temp Pulse Resp BP Pulse Ox
98.0 F 83 18 118/53 98
03/24/24 23:27 03/24/24 23:27 03/24/24 23:27 03/24/24 23:27 03/24/24 23:27
I&O
03/24/24 03/25/24 03/26/24
06:59 06:59 06:59
Intake Total 480 / 480 1779
Balance 480 / 480 1779
Physical Exam
Physical Exam
HEENT: Anicteric and Moist mucous membranes
Cardiology: Normal Sinus Rhythm
Pulmonary: Clear
GI: Soft, Non Distended and Non Tender
Extremities: No Edema
Neuro: Non Focal
[2024-03-25 07:26] VITALS: BP 146/66
[2024-03-25] MEDS: ASPIR LOW (ENTERIC COATED) 81 MG PO (08:31)
[2024-03-25] MEDS: MIRALAX 17 GRAMS PO (08:31)
[2024-03-25] MEDS: TRANDATE 100 MG PO ×2 (08:31→20:06)
[2024-03-25] MEDS: LYRICA 50 MG PO ×3 (08:31→22:19)
[2024-03-25] MEDS: LOVENOX 30 MG SC (08:31)
[2024-03-25 09:29] LABS: % Basophils 0.4 % (0-2); % Eosinophils 2.4 % (0-6); % Immature Granulocytes 0.8 % (0-0.5); % Lymphocytes 6.1 % (20.5-51.1); % Monocytes 13.2 % (1.7-9.3); % Neutrophils 77.1 % (42.2-75.2); Absolute Eosinophils 0.2 10^3/uL (0-0.7); Absolute Immature Granulocytes 0.1 10^3/uL (0-0.05); Absolute Lymphocytes 0.5 10^3/uL (1.2-3.4); Absolute Monocytes 1.1 10^3/uL (0.1-0.6); Absolute Neutrophils 6.2 10^3/uL (1.4-6.5); Hematocrit 28.7 % (37.0-47.0); Mean Corp Hgb Conc. 34.8 g/dL (33.0-37.0); Mean Corpuscular Hgb 32.7 pg (27.0-31.0); Mean Corpuscular Volume 93.8 fL (81.0-99.0); Mean Platelet Volume 9.1 fL (7.4-10.4); Nucleated Red Blood Cells % 0 %; Platelet Count 242 10^3/uL (130-400); Red Blood Cell Count 3.06 10^6/uL (4.20-5.40); Red Cell Dist. Width 15.2 % (11.5-14.5)
--- NOTE | 2024-03-25 09:30 | PTCARENOTE ---
Patient c/o 12/12 left lower back pain radiating down left leg. Patient refusing narcotic and Flexeril as ordered. Patient states, 'When this happened before, the doctor gave me steroids.' Physician made aware. Spouse at bedside, patient assisted
back to bed.
[2024-03-25 09:43] LABS: ALT (SGPT) 151 U/L (0-35); AST (SGOT) 168 U/L (14-36); Albumin 3.4 g/dl (3.5-5.0); Alkaline Phosphatase 99 U/L (38-126); Blood Urea Nitrogen 15 mg/dl (7-17); Calcium 8.9 mg/dl (8.4-10.2); Carbon Dioxide 28 mmol/L (22-30); Chloride 104 mmol/L (98-107); Estimated Creatinine Clearance 56 ml/min; Glucose 94 mg/dl (70-99); Potassium 3.8 mmol/L (3.5-5.1); Sodium 135 mmol/L (135-145); Total Bilirubin 1.3 mg/dl (0.2-1.3); eGFR > 60.00
--- NOTE | 2024-03-25 11:41 | CM ---
Chart reviewed and patient remains on OBS status, catalytic case operator is waiting on PT/OT updates and recommendations. Physical therapy and occupational therapy attempted to work with patient today.
Plan; Await recommendations from physical therapy and occupational therapy on patient.
[2024-03-25] MEDS: DELTASONE 20 MG PO (13:27)
--- NOTE | 2024-03-25 14:45 | W.PN.HOSP.TC ---
Today's Communication/Plan
-
Prednisone/analgesic regimen for sciatica.
Continue physical therapy.
Trend LFT
Diet has been advanced.
Assessment / Plan
Assessment / Plan
Impression:
Presentation with persistent nausea, dry heaves and abdominal cramps.
Abnormal LFTs, mixed pattern with concern for DILI.
Recent hospitalization for left hip fracture, status post left cephalomedullary nail 03/17
Acute postoperative anemia requiring transfusion.
Other conditions:
Essential hypertension
Peripheral neuropathy
Lupus
Plan:
Presentation with persistent nausea, dry heaves and abdominal pain.
Exam with benign abdomen.
Noted with elevation of LFTs mixed pattern.
CT scan of the abdomen and pelvis, abdominal ultrasound with no hepatobiliary abnormalities.
Clinically and radiologically with no evidence of intestinal obstruction or obstipation.
Concern for drug-induced liver injury since being treated with Tylenol for pain recent left hip fracture.
Hold further Tylenol.
Nausea improved.
LFTs trending down including normalized bilirubin.
Follow trend.
Advance diet.
Lower back pain developed on 03/25 and consistent with sciatica with radiation to the left lower extremity.
Lumbar x-ray with no acute abnormalities
Add oral prednisone 20 mg daily.
Continue current analgesic regimen
Physical therapy.
Urinalysis not consistent with UTI
Urine culture with gram-negative pending final identification.
Given recent surgery, Hernandes catheter will provide single dose of ceftriaxone on 03/27
Status post left hip fracture/left cephalomedullary nail 03/17.
Continue physical therapy
Adjust analgesic regimen.
DVT prophylaxis with Lovenox
Acute postoperative anemia with low with hemoglobin at 6.2, required 2 units of packed red blood cells transfused over the last hospitalization.
Hemoglobin 11.4 on presentation
Monitor CBC
Essential hypertension
Continue labetalol
Peripheral neuropathy
Continue amitriptyline and pregabalin
Lupus with no evidence of flareup.
Currently not on any immunosuppressive medications.
Full code.
Anticipated Discharge: 24 - 48 hours
Subjective/Interval History
-
Date of Service: March 25, 2024
Objective Data
-
Labs:
Laboratory Results
03/25/24
08:30
WBC 8.0
Hgb 10.0 L
Hct 28.7 L
Plt Count 242 D
Sodium 135
Potassium 3.8
Chloride 104
Carbon Dioxide 28
BUN 15
Creatinine 0.5 L
Glucose 94
Calcium 8.9
Total Bilirubin 1.3
AST 168 H
ALT 151 H
Alkaline Phosphatase 99
Vital Signs:
Vital Signs
Temp Pulse Resp BP Pulse Ox
98.1 F 91 20 146/66 100
03/25/24 07:26 03/25/24 07:26 03/25/24 07:26 03/25/24 07:26 03/25/24 07:26
I&O
03/24/24 03/25/24 03/26/24
06:59 06:59 06:59
Intake Total 480 / 480 1780 / 1780
Balance 480 / 480 1780 / 1780
Physical Exam
-
General: Well Developed and No Apparent Distress
HEENT: Normocephalic, Atraumatic and Moist Mucous Membranes
Respiratory: Clear to Auscultation
Cardiac: Regular Rhythm and S1/S2; Negative Murmur, Rub or Gallop
GI: Soft, Nontender, Nondistended and Normal Bowel Sounds; Negative Organomegaly
Rectal: Deferred by Provider
Musculoskeletal: No Clubbing, No Cyanosis and No Edema
Skin: Negative Rash
Neuro: Awake, Alert, Oriented, AO x 3 and Nonfocal/Grossly Intact
[2024-03-25 15:15] VITALS: BP 127/67
[2024-03-25] MEDS: STERILE WATER FOR INJECTION 10 ML IV (17:31)
[2024-03-25] MEDS: ROCEPHIN 1000 MG IV (17:31)
[2024-03-25] MEDS: ELAVIL 60 MG PO (22:19)
[2024-03-25 23:21] VITALS: BP 94/53
[2024-03-26] MEDS: FLEXERIL 5 MG PO (02:42)
[2024-03-26 07:13] VITALS: BP 120/75
--- NOTE | 2024-03-26 07:45 | PTCARENOTE ---
Patient c/o increased sciatica pain. Roxicodone given with relief. at bedside.
[2024-03-26] MEDS: ASPIR LOW (ENTERIC COATED) 81 MG PO (07:49)
[2024-03-26] MEDS: MIRALAX 17 GRAMS PO (07:49)
[2024-03-26] MEDS: TRANDATE 100 MG PO ×2 (07:49→20:12)
[2024-03-26] MEDS: ROXICODONE 5 MG PO ×2 (07:49→20:10)
[2024-03-26] MEDS: DELTASONE 20 MG PO (07:49)
[2024-03-26] MEDS: LYRICA 50 MG PO ×3 (07:50→21:49)
[2024-03-26] MEDS: LOVENOX 30 MG SC (07:50)
[2024-03-26] MEDS: SENOKOT-S 1 TABLET PO (08:08)
[2024-03-26 08:58] LABS: ALT (SGPT) 105 U/L (0-35); AST (SGOT) 88 U/L (14-36); Albumin 3.3 g/dl (3.5-5.0); Alkaline Phosphatase 92 U/L (38-126); Direct Bilirubin 0.2 mg/dl (0.0-0.4); Total Bilirubin 1.3 mg/dl (0.2-1.3); Total Protein 5.7 g/dl (6.3-8.2)
[2024-03-26 09:20] VITALS: BP 118/60; BP 119/62; PULSE 82; O2SAT 98
[2024-03-26 09:27] VITALS: BP 118/60
--- NOTE | 2024-03-26 09:28 | W.PN.GI.CBS2 ---
Addendum entered and electronically signed by Nando Garcia MD 03/26/24 14:07:
I saw and examined the patient.
The MAINTENANCE REPAIRER or PA's note was reviewed and I agree with the note.
Comment: No complaints
ABD soft NT
REC:
LFTs slowly improving
No abd pain
OK to hold off on MRI
F/U with GI in office. No further recs inpt
Will sign off.
Original Note:
Today's Communication / Plan
-
Trend LFT's. OP follow-up as below. Avoid hepatotoxins. Bowel regimen. No further GI recs, will sign off at this time. Please call back with questions or concerns.
Assessment / Plan
-
The pt is a pleasant 78yo female with a PMH significant for HTN, HLD, lupus, neuropathy with recent admission 03/16-03/21 with fall and left intertrochanteric femoral fracture with surgical fixation and noted anemia, who now returns with abdominal
pain, nausea, and constipation. On admission noted with further rise in LFT's with bili 2, AST 220, ALT 112 and alk phos 107 with labs 03/21 bili 1.3, AST 83, ALT 38, alk phos 83. On admission CT and US completed without significant findings.
Hepatitis serologies are pending.
Problem list:
-nausea/dry heaves, improved
-chronic constipation
-increased LFT's
-increased urination
-post-op anemia
-recent left femur fracture with surgical fixation
other med problems:
-lupus
-neuropathy
-hyperlipidemia
-HTN
-hx linq monitor
Recommendations:
-Etiology of symptoms/elevated LFTs unclear. Possibly related to side effects of medication- narcotic use v constipation v surgery v medication induced v other
-Her LFT's continue to down trend. No liver etiology seen on CT or US. Unlikely obstructed stone given improvement and normal imaging.
-Would continue to trend LFT's
-Avoid hepatotoxins
-Hepatitis serologies are pending
-Consider further w/u outpatient if LFT's are persistently elevated. We have arranged follow-up in the office on 04/16 at 12:[address] Plunkett.
-She should repeat her LFT's OP with her PCP 1 week after discharge
-Continue with bowel regimen, Miralax 1 capful daily, Colace 1 tab BID. Can use senna 1-2 tabs nightly PRN. Discussed with the pt and her to adjust bowel regimen based on stool response.
-PT/OT for back pain, work-up as per hospitalist
-Limit narcotics as able as this will worsen constipation
-No further inpatient GI recommendations. Will sign off at this time. Please call back with questions or concerns.
Subjective
Subjective
Date of Service: March 26, 2024
The pt was seen and examined at the bedside. She reports some improvement in her back pain after a dose of roxicodone. Her LFT's are improving. She had a bowel movement this morning.
Objective
Data Reviewed
Laboratory Data:
Laboratory Results
03/25/24 08:30
03/25/24 08:30
Laboratory Results
PT 14.2 Sec (11.4-14.6) 03/24/24 07:07
INR 1.12 03/24/24 07:07
Total Bilirubin 1.3 mg/dl (0.2-1.3) 03/26/24 07:34
AST 88 U/L (14-36) H 03/26/24 07:34
ALT 105 U/L (0-35) H 03/26/24 07:34
Alkaline Phosphatase 92 U/L (38-126) 03/26/24 07:34
Lipase 78 U/L (23-300) 03/22/24 23:22
Vital Signs and I&O:
Vital Signs
Temp Pulse Resp BP Pulse Ox
97.9 F 87 24 120/75 95
03/26/24 07:13 03/26/24 07:13 03/26/24 07:13 03/26/24 07:13 03/26/24 07:13
I&O
03/25/24 03/26/24 03/27/24
06:59 06:59 06:59
Intake Total 1780 / 1780 1800 / 1800
Balance 1780 / 1780 1800 / 1800
Physical Exam
Physical Exam
HEENT: Anicteric
Cardiology: S1 and S2 (RRR)
Pulmonary: Clear
GI: Soft, Distended (mildly distended) and Normal Bowel Sounds
Neuro: Non Focal
--- NOTE | 2024-03-26 11:18 | CM ---
Addendum entered by Cele Gregory 03/26/24 14:30:
Patient and spouse have been accepted at [facility], bed is available today, need Auth, all clinicals faxed to [facility] waiting on Auth.
Original Note:
physician practice manager reviewed patient's chart and met with patient and physical therapy are recommending skilled placement, options reviewed and patient and spouse have declined [facility] they are requesting referrals to Velma Zaman Lyman at [place],
[facility], [facility] and [facility].
Plan; To await determinations from above facilities.
--- NOTE | 2024-03-26 13:43 | PTCARENOTE ---
Patient's pain much improved. Patient OOB ambulating to bathroom with walker and supervision.
--- NOTE | 2024-03-26 14:55 | PN.CDI ---
CDI
- -
CDI:
Physician Documentation Request
Admit Date: 03/25/24 10:12
Dear Doctor Allyson,
Patient admitted for drug induced liver injury.
Please review the following and provide your response in the progress notes.
Clinical Indicators:
Height: 5' 3'
Weight: 100 lbs
BMI:17.8
If possible, please provide an associated diagnosis related to the abnormal BMI, such as:
Underweight
Cachectic
BMI is not significant
Other
BMI < or = to 19.9
Underweight
Weight Loss
Cachectic
Anorexia
Use of terms such as suspected, likely, concern for, or probable (associated with a specific diagnosis that is being evaluated, monitored, or treated as if it exists) are acceptable and can be coded in the inpatient setting, when documented at the
time of discharge.
Thank you,
Alena Gilbert RN, BSN
CDI Specialist
Available via [facility] text
Please use your independent medical judgment in providing your response.
--- NOTE | 2024-03-26 14:59 | W.PN.HOSP.TC ---
Today's Communication/Plan
-
Physical therapy
[facility]
Assessment / Plan
Assessment / Plan
Impression:
Presentation with persistent nausea, dry heaves and abdominal cramps.
Abnormal LFTs, mixed pattern with concern for DILI.
Recent hospitalization for left hip fracture, status post left cephalomedullary nail 03/17
Acute postoperative anemia requiring transfusion.
Other conditions:
Essential hypertension
Peripheral neuropathy
Lupus
Plan:
Presentation with persistent nausea, dry heaves and abdominal pain.
Exam with benign abdomen.
Noted with elevation of LFTs mixed pattern.
CT scan of the abdomen and pelvis, abdominal ultrasound with no hepatobiliary abnormalities.
Clinically and radiologically with no evidence of intestinal obstruction or obstipation.
Concern for drug-induced liver injury since being treated with Tylenol for pain recent left hip fracture.
Hold further Tylenol.
Nausea improved.
LFTs trending down including normalized bilirubin.
Follow trend.
Advance diet.
Lower back pain developed on 03/25 and consistent with sciatica with radiation to the left lower extremity.
Lumbar x-ray with no acute abnormalities
Initiated on prednisone 20 mg 03/26. Improving
Continue current analgesic regimen
Physical therapy.
Urinalysis not consistent with UTI
Urine culture with gram-negative pending final identification. Final cultures E. coli and Citrobacter
Given recent surgery.
Initiated on ceftriaxone empirically, according to sensitivities will transition and give single dose of Levaquin on 03/26
Status post left hip fracture/left cephalomedullary nail 03/17.
Continue physical therapy
Adjust analgesic regimen.
DVT prophylaxis with Lovenox
Acute postoperative anemia with low with hemoglobin at 6.2, required 2 units of packed red blood cells transfused over the last hospitalization.
Hemoglobin 11.4 on presentation
Monitor CBC
Essential hypertension
Continue labetalol
Peripheral neuropathy
Continue amitriptyline and pregabalin
Lupus with no evidence of flareup.
Currently not on any immunosuppressive medications.
Full code.
Anticipated Discharge: 24 - 48 hours
Subjective/Interval History
-
Date of Service: March 26, 2024
Objective Data
-
Labs:
Laboratory Results
03/26/24
07:34
Total Bilirubin 1.3
AST 88 H
ALT 105 H
Alkaline Phosphatase 92
Vital Signs:
Vital Signs
Temp Pulse Resp BP Pulse Ox
97.9 F 87 24 120/75 95
03/26/24 07:13 03/26/24 07:13 03/26/24 07:13 03/26/24 07:13 03/26/24 07:13
I&O
03/25/24 03/26/24 03/27/24
06:59 06:59 06:59
Intake Total 1780 / 1780 1800 / 1800
Balance 1780 / 1780 1800 / 1800
Physical Exam
-
General: Well Developed and No Apparent Distress
HEENT: Normocephalic, Atraumatic and Moist Mucous Membranes
Respiratory: Clear to Auscultation
Cardiac: Regular Rhythm and S1/S2; Negative Murmur, Rub or Gallop
GI: Soft, Nontender, Nondistended and Normal Bowel Sounds; Negative Organomegaly
Rectal: Deferred by Provider
Musculoskeletal: No Clubbing, No Cyanosis and No Edema
Skin: Negative Rash
Neuro: Awake, Alert, Oriented, AO x 3 and Nonfocal/Grossly Intact
[2024-03-26] MEDS: LEVAQUIN 500 MG PO (16:02)
[2024-03-26 16:30] VITALS: BP 118/62
[2024-03-26] MEDS: COLACE 100 MG PO (20:10)
[2024-03-26 21:37] LABS: Hepatitis B Core Ab, Total Negative (Negative); Hepatitis B Surface Antibody Negative; Hepatitis B Surface Antigen Negative (Negative); Hepatitis C Antibody Negative (Negative)
[2024-03-26 21:41] LABS: Hepatitis A Antibody, Total Negative (Negative)
[2024-03-26] MEDS: ELAVIL 60 MG PO (21:49)
[2024-03-26] MEDS: DILAUDID 0.5 MG IV (23:14)
[2024-03-26 23:36] VITALS: BP 113/63
[2024-03-27 07:40] VITALS: BP 115/67
[2024-03-27] MEDS: LOVENOX 30 MG SC (08:53)
[2024-03-27] MEDS: ROXICODONE 5 MG PO (08:53)
[2024-03-27] MEDS: ASPIR LOW (ENTERIC COATED) 81 MG PO (08:54)
[2024-03-27] MEDS: COLACE 100 MG PO ×2 (08:54→21:08)
[2024-03-27] MEDS: LYRICA 50 MG PO ×3 (08:54→21:13)
[2024-03-27] MEDS: DELTASONE 20 MG PO (08:54)
[2024-03-27] MEDS: TRANDATE 100 MG PO ×2 (08:54→21:11)
[2024-03-27] MEDS: MIRALAX 17 GRAMS PO (08:55)
--- NOTE | 2024-03-27 10:00 | CM ---
Addendum entered by Cele Gregory 03/27/24 16:43:
Auth received for 13 days from Carolee at [facility], Auth [id number], 03/27 to 04/08/24, NRD Apr 09 [phone], fax [phone] per admissions bed available Saturday or Saturday.
[facility]
Report [phone]

Original Note:
Chart reviewed and Auth submitted yesterday for skilled at [facility], waiting on Auth from [facility].
Plan; Skilled placement at [facility] waiting on Auth from insurance, pending ref number [id number].
[2024-03-27 14:20] VITALS: BP 130/76
[2024-03-27 14:22] VITALS: BP 130/66; PULSE 91
[2024-03-27 15:50] VITALS: BP 115/62
--- NOTE | 2024-03-27 16:08 | W.PN.HOSP.TC ---
Addendum entered and electronically signed by Gabriel Valadez MD 04/03/24 16:49:
Underweight. BMI 17.8.
Original Note:
Today's Communication/Plan
-
LFTs trending down
Tolerates diet.
Able to tolerate physical therapy with improved sciatica after 2 days course of prednisone.
Stable for discharge pending bed availability at [facility].
Assessment / Plan
Assessment / Plan
Impression:
Presentation with persistent nausea, dry heaves and abdominal cramps.
Abnormal LFTs, mixed pattern with concern for DILI.
Recent hospitalization for left hip fracture, status post left cephalomedullary nail 03/17
Acute postoperative anemia requiring transfusion.
Other conditions:
Essential hypertension
Peripheral neuropathy
Lupus
Plan:
Presentation with persistent nausea, dry heaves and abdominal pain.
Exam with benign abdomen.
Noted with elevation of LFTs mixed pattern.
CT scan of the abdomen and pelvis, abdominal ultrasound with no hepatobiliary abnormalities.
Clinically and radiologically with no evidence of intestinal obstruction or obstipation.
Concern for drug-induced liver injury since being treated with Tylenol for pain recent left hip fracture.
Hold further Tylenol.
Nausea improved.
LFTs trending down including normalized bilirubin.
Follow trend.
Tolerate advanced diet.
Lower back pain developed on 03/25 and consistent with sciatica with radiation to the left lower extremity.
Lumbar x-ray with no acute abnormalities
Improved after short course of prednisone 03/26 - 03/27.
Continue current analgesic regimen
Physical therapy.
Urinalysis not consistent with UTI
Urine culture with gram-negative pending final identification. Final cultures E. coli and Citrobacter
Given recent surgery.
Initiated on ceftriaxone empirically, according to sensitivities will transition and give single dose of Levaquin on 03/26
Status post left hip fracture/left cephalomedullary nail 03/17.
Continue physical therapy
Adjust analgesic regimen.
DVT prophylaxis with Lovenox
Acute postoperative anemia with low with hemoglobin at 6.2, required 2 units of packed red blood cells transfused over the last hospitalization.
Hemoglobin 11.4 on presentation
Monitor CBC
Essential hypertension
Continue labetalol
Peripheral neuropathy
Continue amitriptyline and pregabalin
Lupus with no evidence of flareup.
Currently not on any immunosuppressive medications.
Full code.
Anticipated Discharge: 24 - 48 hours
Subjective/Interval History
-
Date of Service: March 27, 2024
Objective Data
-
Vital Signs:
Vital Signs
Temp Pulse Resp BP Pulse Ox
98.5 F 84 16 115/62 96
03/27/24 15:50 03/27/24 15:50 03/27/24 15:50 03/27/24 15:50 03/27/24 15:50
I&O
03/26/24 03/27/24 03/28/24
06:59 06:59 06:59
Intake Total 1800 / 1800 1440 / 1440
Balance 1800 / 1800 1440 / 1440
Physical Exam
-
General: Well Developed and No Apparent Distress
HEENT: Normocephalic, Atraumatic and Moist Mucous Membranes
Respiratory: Clear to Auscultation
Cardiac: Regular Rhythm and S1/S2; Negative Murmur, Rub or Gallop
GI: Soft, Nontender, Nondistended and Normal Bowel Sounds; Negative Organomegaly
Rectal: Deferred by Provider
Musculoskeletal: No Clubbing, No Cyanosis and No Edema
Skin: Negative Rash
Neuro: Awake, Alert, Oriented, AO x 3 and Nonfocal/Grossly Intact
[2024-03-27] MEDS: ELAVIL 60 MG PO (21:11)
[2024-03-27 23:00] VITALS: BP 101/65
[2024-03-28 07:00] VITALS: BP 113/74
[2024-03-28] MEDS: ROXICODONE 5 MG PO (08:18)
[2024-03-28] MEDS: LYRICA 50 MG PO ×2 (08:18→23:08)
[2024-03-28] MEDS: COLACE 100 MG PO ×2 (08:18→20:54)
[2024-03-28] MEDS: TRANDATE 100 MG PO ×2 (08:18→20:54)
[2024-03-28] MEDS: ASPIR LOW (ENTERIC COATED) 81 MG PO (08:18)
[2024-03-28] MEDS: MIRALAX 17 GRAMS PO (08:19)
[2024-03-28] MEDS: LOVENOX 40 MG SC (08:19)
--- NOTE | 2024-03-28 10:56 | W.PN.HOSP.TC ---
Addendum entered and electronically signed by Alfa Nicole MD 03/28/24 16:06:
DVT of left gastrocnemius vein (ISGVT)
-left gastrocnemius vein clot found on Venous Doppler
-Discussed with primary orthopedic surgeon, starting on Eliquis for anticoagulation
-Patient did risk of clot progression due to limited mobility with recent sx
Original Note:
Today's Communication/Plan
-
see note
Assessment / Plan
Assessment / Plan
Impression:
Presentation with persistent nausea, dry heaves and abdominal cramps.
Abnormal LFTs, mixed pattern with concern for DILI.
Recent hospitalization for left hip fracture, status post left cephalomedullary nail 03/17
Acute postoperative anemia requiring transfusion.
Other conditions:
Essential hypertension
Peripheral neuropathy
Lupus
Plan:
Presentation with persistent nausea, dry heaves and abdominal pain.
Exam with benign abdomen.
Noted with elevation of LFTs mixed pattern.
CT scan of the abdomen and pelvis, abdominal ultrasound with no hepatobiliary abnormalities.
Clinically and radiologically with no evidence of intestinal obstruction or obstipation.
Concern for drug-induced liver injury since being treated with Tylenol for pain recent left hip fracture.
LFT has trended down, not normalized though.
Lower back pain developed on 03/25 and consistent with sciatica with radiation to the left lower extremity.
Lumbar x-ray with no acute abnormalities
Improved after short course of prednisone 03/26 - 03/27.
Continue current analgesic regimen
Physical therapy.
Discussed at length for need of follow-up with spinal surgery postdischarge for further evaluation
Urinalysis not consistent with UTI
Urine culture with gram-negative pending final identification. Final cultures E. coli and Citrobacter
Given recent surgery.
Initiated on ceftriaxone empirically, according to sensitivities will transition and give single dose of Levaquin on 03/26
Status post left hip fracture/left cephalomedullary nail 03/17.
Continue physical therapy
DVT prophylaxis with Lovenox
patient hesitant to take further narcotic pain medication, rationale explained and willing to try 2.5mg oxy prn for sev pain
Tylenol not an option with recovering Liver dysfunction and choosing naproxen/pepcid regimen for 5-7 days at which point can transition to tylenol with LFT hopefully normalized.
Bilateral leg swelling with left foot showing smll subcutaneous hematoma/swelling. no signs of comparment syndrome.
Bilateral LE venous doppler US orderd to r/o VTE
patient feels sedated and somnolent day time with lyrica. Discussed decreasing dose for day time and making it PRN - patient to choose based on symptoms to get lyrica vs narc vs both.
continue same dose Lyrica 50mg with Amitriptyline as provide good symptom control and sleep,
Acute postoperative anemia with low with hemoglobin at 6.2, required 2 units of packed red blood cells transfused over the last hospitalization.
Hemoglobin 11.4 on presentation
Monitor CBC
Essential hypertension
Continue labetalol
Peripheral neuropathy
Continue amitriptyline and pregabalin
Lupus with no evidence of flareup.
Currently not on any immunosuppressive medications.
Full code.
Possible discharge to [facility] later in the day today if LE venous doppler neg. patient and spouse in agreement
Anticipated Discharge: Today
Subjective/Interval History
-
Date of Service: March 28, 2024
patient sitting in chair and feels fatigued/tired
have bilateral leg swelling with left foot bruising
difficult taking few steps without having pain
Objective Data
-
Vital Signs:
Vital Signs
Temp Pulse Resp BP Pulse Ox
97.9 F 85 18 113/74 96
03/28/24 07:00 03/28/24 07:00 03/28/24 07:00 03/28/24 07:00 03/28/24 07:00
I&O
03/27/24 03/28/24 03/29/24
06:59 06:59 06:59
Intake Total 1440 / 1440 900 / 900 240 / 240
Balance 1440 / 1440 900 / 900 240 / 240
Review of Systems
-
Respiratory: Reports No Symptoms
Cardiac: Reports No Symptoms
Abdomen/GI: Reports No Symptoms
Physical Exam
-
General: Appears in Distress; Negative Cachectic
HEENT: Negative Oxygen
GI: Soft, Nontender and Nondistended
Musculoskeletal: Edema, Right Lower Extrem, Edema, Left Lower Extrem (Left foot swelling echymosis) and Other (Left hip dressing with dried blood in area)
Neuro: Awake, Alert and Oriented
Psych: Calm
--- NOTE | 2024-03-28 11:08 | CM ---
Addendum entered by Marylou Ryan 03/28/24 14:42:
discharge held until tomorrow. Spoke with Otf in admissions, will set up transport for tomorrow morning, confirmed facility will have bed for patient tomorrow.
Original Note:
CM reviewed patient with Hospitalist, plan for possible discharge today. Patient and spouse seen bedside, discussed potential discharge. Patient will require ambulance transport due to assist of two. Patient reports some anxiety about rehab,
patients spouse reports discharging to rehab is best for patient to get back to baseline. IMM reviewed, signed, placed in chart. CM will update [facility] with transport time. CM will continue to follow for all discharge planning needs.
Plan; possible discharge to [facility], ambulance transport required.
[facility]
Report [phone]
[2024-03-28] MEDS: PEPCID 20 MG PO ×2 (11:45→20:53)
[2024-03-28] MEDS: NAPROSYN 375 MG PO (11:46)
--- NOTE | 2024-03-28 14:33 | PTCARENOTE ---
Report given to RN at [facility]. Patient for discharge this afternoon.
[2024-03-28] MEDS: ROXICODONE 2.5 MG PO (18:40)
[2024-03-28] MEDS: ELIQUIS 10 MG PO (20:53)
[2024-03-28] MEDS: ELAVIL 60 MG PO (20:53)
[2024-03-28 23:00] VITALS: BP 102/59
[2024-03-28] MEDS: SKELAXIN 800 MG PO (23:08)
--- NOTE | 2024-03-29 00:12 | PTCARENOTE ---
Pt transferred from rm 430 to [phone] at this time.
[2024-03-29 07:15] VITALS: BP 102/58
--- NOTE | 2024-03-29 08:19 | W.PN.HOSP.TC ---
Today's Communication/Plan
-
d/c to [facility]
Assessment / Plan
Assessment / Plan
Impression:
Abnormal LFTs, mixed pattern with concern for DILI.
Recent hospitalization for left hip fracture, status post left cephalomedullary nail 03/17
Acute postoperative anemia requiring transfusion.
Left gastrocnemius vein clot
Other conditions:
Essential hypertension
Peripheral neuropathy
Lupus
Plan:
Presentation with persistent nausea, dry heaves and abdominal pain.
Exam with benign abdomen.
Noted with elevation of LFTs mixed pattern.
CT scan of the abdomen and pelvis, abdominal ultrasound with no hepatobiliary abnormalities.
Clinically and radiologically with no evidence of intestinal obstruction or obstipation.
Concern for drug-induced liver injury since being treated with Tylenol for pain recent left hip fracture.
LFT has trended down, not normalized though.
Lower back pain developed on 03/25 and consistent with sciatica with radiation to the left lower extremity.
Lumbar x-ray with no acute abnormalities
Improved after short course of prednisone 03/26 - 03/27.
Continue current analgesic regimen
Physical therapy.
Discussed at length for need of follow-up with spinal surgery postdischarge for further evaluation
Urinalysis not consistent with UTI
Urine culture with gram-negative pending final identification. Final cultures E. coli and Citrobacter
Given recent surgery.
Initiated on ceftriaxone empirically, according to sensitivities will transition and give single dose of Levaquin on 03/26
Status post left hip fracture/left cephalomedullary nail 03/17.
Continue physical therapy
DVT prophylaxis with Lovenox
patient hesitant to take further narcotic pain medication, rationale explained and willing to try 2.5mg oxy prn for sev pain
Tylenol not an option with recovering Liver dysfunction. Naproxen/NSAID ideal for joint/skeletal pain but patient needed to be started on Eliquis.
Bilateral leg swelling with left foot showing small subcutaneous hematoma/swelling. no signs of compartment syndrome.
Patient feels sedated and somnolent day time with Lyrica. Discussed decreasing dose for day time and making it PRN - patient to choose based on symptoms to get Lyrica vs narc vs both.
continue same dose Lyrica 50mg with Amitriptyline as provide good symptom control and sleep,
DVT of left gastrocnemius vein (ISGVT)
-left gastrocnemius vein clot found on Venous Doppler
-Discussed with primary orthopedic surgeon, starting on Eliquis for anticoagulation
-Patient did risk of clot progression due to limited mobility with recent sx
Acute postoperative anemia with low with hemoglobin at 6.2, required 2 units of packed red blood cells transfused over the last hospitalization.
Hemoglobin 11.4 on presentation
Monitor CBC
Essential hypertension
Continue labetalol
Peripheral neuropathy
Continue amitriptyline and pregabalin
Lupus with no evidence of flareup.
Currently not on any immunosuppressive medications.
Full code.
More than 30 minutes spent in discharge including
Final examination of the patient
Summarizing hospital stay
Instructions for continuing care to all relevant caregivers
Preparation of discharge records, prescriptions, and referral forms
Total time spent (in minutes): 43 mins
Anticipated Discharge: Today
Subjective/Interval History
-
Date of Service: March 29, 2024
able to sleep last night after taking muscle relaxant
denies of having any other issues
Objective Data
-
Vital Signs:
Vital Signs
Temp Pulse Resp BP Pulse Ox
98.2 F 79 16 102/59 100
03/28/24 23:00 03/28/24 23:00 03/28/24 23:00 03/28/24 23:00 03/28/24 23:00
I&O
03/28/24 03/29/24 03/30/24
06:59 06:59 06:59
Intake Total 900 / 900 340 / 340
Balance 900 / 900 340 / 340
Review of Systems
-
Respiratory: Reports No Symptoms
Cardiac: Reports No Symptoms
Abdomen/GI: Reports No Symptoms
Physical Exam
-
General: Appears in Distress; Negative Cachectic
HEENT: Negative Oxygen
GI: Soft, Nontender and Nondistended
Musculoskeletal: Edema, Right Lower Extrem, Edema, Left Lower Extrem (Left foot swelling echymosis) and Other (Left hip dressing with dried blood in area)
Neuro: Awake, Alert and Oriented
Psych: Calm
[2024-03-29] MEDS: COLACE 100 MG PO (08:26)
[2024-03-29] MEDS: MIRALAX 17 GRAMS PO (08:26)
[2024-03-29] MEDS: ELIQUIS 10 MG PO (08:26)
[2024-03-29] MEDS: TRANDATE 100 MG PO (08:26)
[2024-03-29] MEDS: PEPCID PO (08:27)
--- NOTE | 2024-03-29 10:03 | CM ---
Patient and spouse seen bedside, discussed plan for discharge to [facility]. Ambulance transport scheduled for 1:00 p.m. Patient and spouse updated. Otf at [facility] updated with transport time. CM will continue to follow for all
discharge planning needs.
Plan; [facility], 1:00 p.m. ambulance transport.
Report [phone]
[2024-03-29 11:07] VITALS: BP 96/50
[2024-03-29] MEDS: ROXICODONE 2.5 MG PO (12:47)
--- NOTE | 2024-03-29 13:59 | W.DCSUMMARY ---
Discharge Summary
Discharge Data
Date of Admission: 03/25/24
Date of Discharge: 03/29/24
-
Pending Results: No
Hospital Course
Discharging Physician : Dr Alfa Nicole
Disposition : SNF rehab
Primary care physician : Unknown
Principal Discharge diagnosis :
Drug-induced liver injury
Lumbar radiculopathy/sciatica
Left gastrocnemius vein clot
Recent left hip gamma nailing
Chronic Discharge diagnosis :
Essential hypertension
Peripheral neuropathy
Systemic lupus erythematosus
Recent postoperative anemia
Hospital Course :
Patient is a 78-year-old female with above-mentioned past medical history came to ER for having new onset of nausea and abdominal pain. CT abdomen pelvis and abdominal ultrasound was done which did not show any hepatobiliary abnormalities. There
is no concern for intestinal obstruction or obstipation. GI was involved in care and patient was felt to having possible drug-induced liver injury as patient was on Tylenol for pain control after left hip fracture last week. Patient was taken off
atenolol and continued to be monitored, LFT normalized after that.
Patient also had new onset of lower back pain and was felt to be a lumbar radiculopathy/sciatica. Patient was provided a short course of steroid. A lumbar x-ray was done which did not show any acute abnormality.
Patient was also having new onset of left calf pain for which patient had lower extremity venous Doppler, that showed patient having small clot in gastrocnemius vein. After discussion with orthopedic surgeon patient was started on oral Eliquis
therapy.
Post medical stabilization patient was discharged to group home facility for continuation of rehab.
Important imaging findings :
None
Procedure findings :
None
Discharge Plan
-
Patient Disposition: Snf/SNF
Discharge Diagnosis/Procedures: Abnormal LFTs, mixed pattern with concern for DILI.
Recent hospitalization for left hip fracture, status post left cephalomedullary nail 03/17
Acute postoperative anemia requiring transfusion.
Right calf/gastrocnemius vein clot
Other conditions:
Essential hypertension
Peripheral neuropathy
Lupus
Condition: Good
Diet: Regular
Activity: As tolerated
Driving Restrictions: No driving
Bathing Restrictions: OK to Shower
Referrals:
Stu Plunkett MD [Active] - 04/16/24 12:00 pm (call if you cannot make this appt)
Cem Garduno MD [Active] - in two to three weeks
UNKNOWN - PT DOES,NOT KNOW [Family Provider] -
Prescriptions:
New
polyethylene glycol 3350 [HealthyLax] 17 gram Powder In Packet
17 g PO DAILYPRN PRN (Reason: constipation) Qty: 30 0RF
Eliquis 5 mg Tablet
See Rx Instructions .ROUTE .COMPLEX Qty: 60 0RF
Rx Instructions:
Take 2 Tablet Twice daily till 04/04 THEN
Take 1 tablet Twice daily from 04/05 for maintenence
pregabalin 50 mg Capsule
50 mg PO HS Qty: 30 0RF
metaxalone 800 mg Tablet
800 mg PO Q8HPRN PRN (Reason: spasm) Qty: 10 0RF
pregabalin 25 mg capsule
25 mg PO BID AT 0800,1700 PRN (Reason: Neuropathic pain) Qty: 15 0RF
oxycodone 5 mg tablet
5 mg PO Q8H PRN (Reason: sev Pain) Qty: 15 0RF
Rx Instructions:
Take Half table for moderate pain
Continued
labetalol 100 MG tablet
100 mg PO BID
amitriptyline 10 MG tablet
60 mg PO HS
Patient Comments:
docosahexaenoic acid-epa 1 CAP capsule
1 cap PO DAILY
therapeutic multivitamin Tablet
1 tab PO DAILY
ascorbic acid (vitamin C) [Vitamin C] 500 mg Tablet
500 mg PO DAILY
vitamin B complex Tablet
1 tab PO DAILY
cholecalciferol (vitamin D3) [Vitamin D3] 25 mcg (1,000 unit) Tablet
25 mcg PO BID
magnesium hydroxide [Milk of Magnesia] 400 mg/5 mL Suspension
400 mg PO DAILY PRN (Reason: constipation)
bisacodyl [Dulcolax (bisacodyl)] 10 mg Suppository
10 mg VT DAILY PRN (Reason: prn constipation)
Fleet Enema 19-7 gram/118 mL Enema
118 ml VT ONCE PRN (Reason: if MOM ineffective; constipation)
ondansetron 4 mg Tablet,Disintegrating
4 mg PO Q6H PRN (Reason: nausea)
docusate sodium 100 mg capsule
100 mg PO BID
Discontinued
aspirin 81 MG tablet,delayed release (DR/EC)
81 mg PO Daily
pregabalin 50 MG capsule
50 mg PO TID
cyclobenzaprine 10 mg Tablet
5 mg PO Q8HPRN PRN (Reason: spasm in hip area) 7 Days Qty: 4 0RF
oxycodone 5 mg Tablet
5 mg PO Q4HPRN PRN (Reason: moderate pain) Qty: 4 0RF
acetaminophen 325 mg Tablet
650 mg PO Q4H PRN (Reason: pain or fever)
enoxaparin 40 mg/0.4 mL syringe
40 mg SC DAILY
Discharge Orders:
Discharge Patient (As Directed); Ordered 03/29/24
Ordered By: Alfa Nicole
Discharge Date and Time
Print Language: THAI
== END 2024-03-29 13:25 | DRG 442 ==
LOC: 4 WEST ACU 10:12
PROVIDERS: Internal Medicine; Nurse Practitioner Adult Health; Nurse Practitioner Family; Physician Assistant; ADMITTING PHYSICIAN Internal Medicine; ATTENDING PHYSICIAN Hospitalist; CONSULT PHYSICIAN Internal Medicine Gastroenterology; EMERGENCY PHYSICIAN Student in an Organized Health Care Education/Training Program
DX: K71.9 Toxic liver disease, unspecified (principal); T39.1X5A Adverse effect of 4-Aminophenol derivatives, initial encounter; Z68.1 Body mass index [BMI] 19.9 or less, adult; I10 Essential (primary) hypertension; E78.00 Pure hypercholesterolemia, unspecified; K59.03 Drug induced constipation; G62.9 Polyneuropathy, unspecified; R82.71 Bacteriuria; M54.42 Lumbago with sciatica, left side; I82.462 Acute embolism and thrombosis of left calf muscular vein; M32.9 Systemic lupus erythematosus, unspecified; R63.6 Underweight; D64.9 Anemia, unspecified; Z88.0 Allergy status to penicillin; Z79.82 Long term (current) use of aspirin; Z79.899 Other long term (current) drug therapy; Z98.890 Other specified postprocedural states
CPT/HCPCS: 72110; 74177; 76700; 80053; 80076; 80143; 81003; 81015; 82248; 83690; 84484; 85025; 85027; 85610; 86704; 86705; 86706; 86708; 86709; 86803; 87077; 87086; 87186; 87340; 93005; 93970; 96374; 97116; 97163; 97166; 97530; 97535; 99285; Q9967

== ENCOUNTER → 2024-06-15 09:12 | Outpatient (REF) | payer OTHER, SELFPAY | LOC: RAD 09:12 | PROVIDERS: ATTENDING PHYSICIAN Internal Medicine | DX: S72.002B Fracture of unspecified part of neck of left femur, initial encounter for open fracture type I or II (principal); M81.0 Age-related osteoporosis without current pathological fracture | CPT/HCPCS: 77080 ==

== ENCOUNTER → 2024-11-13 13:06 | Outpatient (REF) | payer OTHER, SELFPAY | LOC: RAD 13:06 | PROVIDERS: ATTENDING PHYSICIAN Internal Medicine | DX: M79.605 Pain in left leg (principal) | CPT/HCPCS: 72110; 72170 ==

== ENCOUNTER → 2024-12-08 11:02 | Outpatient (REF) | payer OTHER, SELFPAY ==
--- NOTE | 2024-12-08 15:34 | EEGC.RPT ---
Continuous EEG Report
Recording
Start Date of Data Reviewed: 12/08/24
End Date of Data Reviewed: 12/08/24
Done with Video Recording: Yes
Report
TECHNICAL REMARKS: This is a technically satisfactory eighteen channel record employing 21 disc electrodes applied according to a measured international 10-20 electrode placement system. There were no significant technical difficulties. The study
was done on a [employer] System.
CLINICAL HISTORY: This is a 79-year-old woman with transient encephalopathy. This study was requested to look for epileptiform activity.
MEDICATIONS: Lyrica
STUDY DURATION: 29 minutes and 5 seconds.
REPORT: At the onset of the EEG, the patient is awake. The background activity consists of 9-10 Hz, persistent, posteriorly dominant, moderate in amplitude, symmetric, and rhythmic activity that is reactive to eye-opening with admixed 10-15
microvolts delta activity. Anteriorly, it consists of a mixture of symmetric and rhythmic 5-10 microvolts, 15-20 beta activity, as well as central 6-7 Hz 10-20 microvolts theta activity. Intermittent generalized 6-7 Hz 10-20 microvolts rhythmic
activity lasting for 1-2 seconds during wakefulness is present. Stepwise intermittent photic stimulation (1-31 Hz) and hyperventilation did not induce any additional abnormalities. Drowsiness is characterized by low amplitude mixed frequency
activity, decreased eye blinking, and muscle artifact.
IMPRESSION: This is an abnormal awake and drowsy EEG due to a mild generalized slowing. This finding indicates a mild encephalopathy that is not specific to etiology. No epileptiform activity was seen. If the clinical picture warrants, a
sleep-deprived awake and sleep record may be helpful.
== END ==
LOC: EEG 11:02
PROVIDERS: ATTENDING PHYSICIAN Psychiatry & Neurology Neurology; FAMILY PHYSICIAN Internal Medicine
DX: G40.209 Localization-related (focal) (partial) symptomatic epilepsy and epileptic syndromes with complex partial seizures, not intractable, without status epilepticus (principal); G62.9 Polyneuropathy, unspecified
CPT/HCPCS: 95816

== ENCOUNTER → 2024-12-15 08:16 | Outpatient (REF) | payer OTHER, SELFPAY | LOC: RAD 08:16 | PROVIDERS: ATTENDING PHYSICIAN Psychiatry & Neurology Neurology; FAMILY PHYSICIAN Internal Medicine | DX: G40.209 Localization-related (focal) (partial) symptomatic epilepsy and epileptic syndromes with complex partial seizures, not intractable, without status epilepticus (principal); G62.9 Polyneuropathy, unspecified | CPT/HCPCS: 78315; A9503 ==